=== PATIENT | female | born 1955 | race Caucasian/White ===

== ENCOUNTER 2018-08-22 13:54 | Outpatient (REF) | payer BC, SELFPAY | END 2018-08-22 14:14 | LOC: NCHCN 13:54 | PROVIDERS: PCP Nurse Practitioner Family; Visit Provider Nurse Practitioner Family | DX: R35.0 Frequency of micturition (principal) | CPT/HCPCS: 87086 ==

== ENCOUNTER 2019-10-26 11:07 | Outpatient (REF) | payer MEDICARE, BC, SELFPAY ==
[2019-10-26 19:24] LABS: Absolute Basophil Count 0.05 k/cumm (0.0-0.2); Absolute Eosinophil Count 0.04 k/cumm (0.0-0.7); Absolute Lymphocyte Count 1.31 k/cumm (1.2-3.4); Absolute Monocyte Count 0.22 k/cumm (0.11-0.7); Absolute Neutrophil Count 1.64 k/cumm (1.2-6.7); Basophils % 1.5; Eosinophils % 1.2; HCT 36.4 % (36.0-46.0); HGB 12.2 g/dL (12.0-15.5); Lymphocytes % 40.2; Mean Corp. HGB Concentration 33.5 g/dL (32.0-36.0); Mean Corpuscular Hemoglobin 32.2 pg (27.0-33.0); Mean Platelet Volume 10.9 fL (8.0-11.0); Monocytes % 6.7; Neutrophils % 50.4; Platelet Count 192 x1000/uL (130-400); RBC 3.79 m/cumm (4.00-5.20); White Blood Cell Count 3.26 k/cumm (4.4-10.8)
[2019-10-26 19:46] LABS: ALT 29 U/L (14-59); AST 19 U/L (15-37); Albumin 4.2 g/dL (3.4-5.0); Alkaline Phosphatase 54 U/L (46-116); Anion Gap 3.3 mmol/L (3-11); BUN 11 mg/dL (7-18); Bilirubin, Total 0.4 mg/dL (0.2-1.0); CO2 35.7 mmol/L (21.0-32.0); CREATININE 0.66 mg/dL (0.55-1.02); Calcium 9.1 mg/dL (8.5-10.1); Calculated LDL 172 mg/dL; Chloride 103 mmol/L (98-107); Cholesterol 253 mg/dL (<200); Glucose 92 mg/dL (74-106); HDL Cholesterol 73 mg/dL (40-60); Potassium 3.8 mmol/L (3.5-5.1); Sodium 142 mmol/L (136-145); TSH (W/Ref FT4) 1.07 uIU/mL (0.36-3.74); Total Protein 6.9 g/dL (6.4-8.2); Triglyceride 43 mg/dL (<150)
[2019-10-29 05:15] LABS: Vitamin D 25 Total 40.2 ng/ml (30-100)
== END 2019-10-26 11:27 ==
LOC: NCHCN 11:07
PROVIDERS: PCP Nurse Practitioner Family; Visit Provider Nurse Practitioner Family
DX: D72.819 Decreased white blood cell count, unspecified (principal); R53.83 Other fatigue; D64.9 Anemia, unspecified; D61.818 Other pancytopenia
CPT/HCPCS: 80053; 80061; 82306; 84443; 85025

== ENCOUNTER 2019-12-11 01:26 | Outpatient (CLI) | payer MEDICARE, BC, SELFPAY ==
--- NOTE | 2019-12-11 10:29 | DI.MAMMO_ITS ---
EXAM: MG MAMMO SCREENING CLINICAL HISTORY: [facility] Z00.00, SCREENING. TECHNIQUE: Bilateral full field digital CC and MLO mammographic images were obtained with 3D tomosyn thesis and utilizing computer aided detection (CAD). COMPARISON: Available for comparison. FINDINGS: Masses/Architectural Distortion: None seen. Microcalcifications: No suspicious pleomorphic-type are seen. Skin Thickening/Nipple Retraction: None. IMPRESSION: 1. No significant interval change with no specific features of malignancy noted. 2. Unless there is more urgent need, screening mammography is recommended, as per [employer] guidelines. ACR BI-RAD Category- 1 Negative Breast Density - Category C - Heterogeneously dense The mammogram demonstrates the patient's breast tissue is dense. Dense breast tissue is very common a nd is not abnormal but dense breast tissue can make it harder to find cancer on a mammogram. Also, de nse breast tissue may increase their breast cancer risk. This information about the result of the [facility] mogram report was provided to the patient to raise their awareness. Use this report when you speak wi th the patient about their risks for breast cancer, which includes their family history. At that time , you may recommend for more screening tests (Ultrasound or MRI) as they might be useful based on the ir risk. A negative radiographic report should not delay biopsy if a dominant or clinically suspicious mass is present. Up to ten percent of cancers are not identified on mammography. A negative report may reinforce clinical impression. Adenosis and dense breasts may obscure an underlying neoplasm. False positive reports average 6 to 10%. Patient will receive a letter notifying them of these results.
== END 2019-12-11 01:46 ==
PROVIDERS: PCP Nurse Practitioner Family; Visit Provider Nurse Practitioner Family
DX: Z12.31 Encounter for screening mammogram for malignant neoplasm of breast (principal)
CPT/HCPCS: 77063; 77067

== ENCOUNTER 2021-01-09 18:56 | Outpatient (REF) | payer MEDICARE, BC, SELFPAY ==
[2021-01-09 16:39] LABS: Iron 82 ug/dL (50-170)
[2021-01-09 16:56] LABS: ALT 28 U/L (14-59); AST 22 U/L (15-37); Albumin 4.2 g/dL (3.4-5.0); Alkaline Phosphatase 62 U/L (46-116); Anion Gap 7.2 mmol/L (3-11); BUN 14 mg/dL (7-18); Bilirubin, Total 0.4 mg/dL (0.2-1.0); CO2 29.8 mmol/L (21.0-32.0); CREATININE 0.7 mg/dL (0.55-1.02); Calcium 9.2 mg/dL (8.5-10.1); Chloride 103 mmol/L (98-107); Glucose 110 mg/dL (74-106); Potassium 4.4 mmol/L (3.5-5.1); Sodium 140 mmol/L (136-145); TSH (W/Ref FT4) 1.12 uIU/mL (0.36-3.74); Total Protein 7.1 g/dL (6.4-8.2)
[2021-01-09 18:38] LABS: Abs Immature Grans 0.01 10^3/uL (0.0-0.06); Absolute Basophil Count 0.04 10^3/uL (0.0-0.2); Absolute Eosinophil Count 0.03 10^3/uL (0.0-0.7); Absolute Lymphocyte Count 1.45 10^3/uL (1.2-3.4); Absolute Monocyte Count 0.26 10^3/uL (0.1-0.8); Absolute Neutrophil Count 2.39 10^3/uL (1.2-6.7); Eosinophils % 0.7; HCT 36.2 % (36.0-46.0); HGB 11.9 g/dL (11.2-15.7); Immature Grans % 0.2; Lymphocytes % 34.7; MCH 32.2 pg (27.0-33.0); MCHC 32.9 % (32.0-36.0); MCV 97.8 fL (80-95); MPV 10.7 fL (8.0-11.0); Monocytes % 6.2; Neutrophils % 57.2; Nucleated RBC 0 %; Platelet Count 184 10^3/uL (130-400); RDW 12.9 % (11.7-14.6); RDW-SD 46.3 fL; WBC 4.18 10^3/uL (4.4-10.8)
== END 2021-01-09 18:57 | disposition home or self-care (01) ==
LOC: NCHCN 18:56
PROVIDERS: PCP Nurse Practitioner Family; Visit Provider Nurse Practitioner Family
DX: D72.819 Decreased white blood cell count, unspecified (principal); R53.83 Other fatigue; D64.9 Anemia, unspecified
CPT/HCPCS: 80053; 83540; 84443; 85025

== ENCOUNTER 2021-03-30 01:11 | Outpatient (CLI) | payer MEDICARE, BC, SELFPAY ==
--- NOTE | 2021-03-30 | DI.MRI_ITS ---
Exam(s) MR CERVICAL SPINE WO EXAM: MR CERVICAL SPINE WO CLINICAL HISTORY: SWELLING IN NECK, R22.1 TECHNIQUE: Multiplanar multisequence MRI of the cervical spine was performed without intravenous con trast. COMPARISON: CR CERVICAL SP. LIMITED (TRAUMA) from 09/15/2011 CR CERVICAL SP. LIMITED (TRAUMA) from 09/15/2011 NM WHOLE BODY BONE SCAN from 03/17/2017 FINDINGS: CERVICOMEDULLARY JUNCTION: Intact with no evidence of cerebellar tonsillar ectopia. No obvious abnor mality of the odontoid process. No evidence of Chiari 1 malformation. CERVICAL SPINAL CORD: There is no abnormal signal in the cervical spinal cord and no evidence of foca l cord atrophy nor focal cord swelling. OSSEOUS:There are no cervical fractures evident. No significant osseous lesions in the cervical vert ebrae. There is slight reversal of the normal curvature of the cervical spine, similar to 2011. INDIVIDUAL LEVELS: C2-3: No disc herniation nor central canal stenosis. No foraminal stenosis. Mild right-sided facet a rthropathy. C3-4: Moderate disc space narrowing.There is right-sided prominent Luschka joint-disc complex with th e posterolateral disc protrusion extending beyond the level of the osteophyte. Some mass effect upon the lateral right thecal sac. No prominent central canal stenosis but there is right-sided foramina l stenosis at this level. Mild facet degenerative changes. C4-5: Preserved disc height and signal. No significant disc herniation. No central canal stenosismo derate bilateral facet arthropathy. Mild foraminal stenosis bilaterally. C5-6: Advanced disc space narrowing, as was also evident on 2011 x-rays mild annular bulging bilatera lly. Right-sided Luschka joint osteophyte complex. This results in some foraminal stenosis. Mild e ffacement of the anterior thecal sac but no tight central canal stenosis. Some facet arthropathy on the left. Right facet appears unremarkable. Mild central canal stenosis. C6-7: Advanced chronic disc space narrowing. Bilateral Luschka joint osteophytes. Slightly larger o n the right side. Also small disc-osteophyte complex. There is slight effacement of the anterior th ecal sac but no tight spinal central canal stenosis. C7-T1: No disc herniation nor central canal stenosis. No facet arthropathy.No foraminal stenosis. IMPRESSION: 1. Multilevel chronic disc changes with the reversal of normal cervical spine curvature, similar to t he x-ray of 2011. 2. There are multilevel Luschka joint-osteophyte complexes which result in multilevel foraminal steno sis as described above. 3. Only mild central canal narrowing. There is no abnormal signal in the cervical spinal cord. No e vidence of Chiari 1 malformation/cerebellar ectopia DATA REPOSITORY:
== END 2021-03-30 01:31 ==
PROVIDERS: PCP Nurse Practitioner Family; Visit Provider Nurse Practitioner Family
DX: R22.1 Localized swelling, mass and lump, neck (principal); M50.822 Other cervical disc disorders at C5-C6 level; M50.823 Other cervical disc disorders at C6-C7 level
CPT/HCPCS: 72141

== ENCOUNTER 2021-09-16 18:31 | Outpatient (REF) | payer MEDICARE, BC, SELFPAY ==
[2021-09-16 19:00] LABS: Abs Immature Grans 0.01 10^3/uL (0.0-0.06); Absolute Basophil Count 0.04 10^3/uL (0.0-0.2); Absolute Eosinophil Count 0.02 10^3/uL (0.0-0.7); Absolute Lymphocyte Count 1.13 10^3/uL (1.2-3.4); Absolute Monocyte Count 0.21 10^3/uL (0.1-0.8); Absolute Neutrophil Count 3.25 10^3/uL (1.2-6.7); Basophils % 0.9; Eosinophils % 0.4; HCT 35.2 % (36.0-46.0); HGB 11.9 g/dL (11.2-15.7); Immature Grans % 0.2; Lymphocytes % 24.2; MCH 31.6 pg (27.0-33.0); MCHC 33.8 % (32.0-36.0); MCV 93.4 fL (80-95); MPV 10.7 fL (8.0-11.0); Monocytes % 4.5; Neutrophils % 69.8; Nucleated RBC 0 %; Platelet Count 190 10^3/uL (130-400); RBC 3.77 10^6/uL (3.93-5.22); RDW 12.5 % (11.7-14.6); RDW-SD 43.5 fL; WBC 4.66 10^3/uL (4.4-10.8)
[2021-09-16 19:03] LABS: ESR 5 mm/hr (0-30)
[2021-09-16 20:54] LABS: TSH (W/Ref FT4) 1.21 uIU/mL (0.36-3.74)
== END 2021-09-16 18:32 | disposition home or self-care (01) ==
LOC: NCHCN 18:31
PROVIDERS: PCP Nurse Practitioner Family; Visit Provider Family Medicine
DX: R53.83 Other fatigue (principal); D61.818 Other pancytopenia
CPT/HCPCS: 85652; 84443; 85025

== ENCOUNTER 2022-03-18 16:19 | Outpatient (REF) | payer MEDICARE, BC, SELFPAY ==
[2022-03-18 14:55] LABS: Bilirubin Negative (Negative); Blood Negative (Negative); Clarity Clear (Clear); Glucose Negative (Negative); Ketones Negative (Negative); Leukocyte Esterase Trace (Negative); Nitrite Negative (Negative); Urobilinogen 0.2 EU/dL (Up TO 0.2)
[2022-03-18 15:05] LABS: Bacteria Negative HPF (Negative); C & S Indicated? No; Casts Negative LPF (Negative); Crystals Negative HPF (Negative); Epithelial Cells Rare HPF (Negative); Mucus Negative (Negative); RBC 0-2 HPF (0-2); WBC 0-2 HPF (0-5)
[2022-03-18 21:06] LABS: Absolute Basophil Count 0.05 10^3/uL (0.0-0.2); Absolute Eosinophil Count 0.05 10^3/uL (0.0-0.7); Absolute Lymphocyte Count 1.14 10^3/uL (1.2-3.4); Absolute Neutrophil Count 1.77 10^3/uL (1.2-6.7); Basophils % 1.6; Eosinophils % 1.6; HCT 36.2 % (36.0-46.0); HGB 12.1 g/dL (11.2-15.7); Lymphocytes % 35.5; MCH 32.4 pg (27.0-33.0); MCHC 33.4 % (32.0-36.0); MCV 97 fL (80-95); MPV 10.4 fL (8.0-11.0); Monocytes % 6.2; Neutrophils % 55.1; Platelet Count 193 10^3/uL (130-400); RBC 3.74 10^6/uL (3.93-5.22); RDW 12.7 % (11.7-14.6); RDW-SD 45.1 fL; WBC 3.21 10^3/uL (4.4-10.8)
[2022-03-18 21:11] LABS: ESR 7 mm/hr (0-30)
[2022-03-18 21:12] LABS: C-Reactive Protein 0.07 mg/dL (0.0-0.3)
[2022-03-19 17:56] LABS: Rheumatoid Factor 151.6 IU/mL (<12.0)
[2022-03-22 10:32] LABS: Lyme Ab w Rflx to Lyme Confirm Negative (Negative)
[2022-03-22 16:08] LABS: ANA Interpretation Positive (Negative); ANA Titer Pattern 1:160 Homogeneous
[2022-03-22 23:36] LABS: Anaplasma phagocytophilum Negative (Negative); B. miyamotoi PCR Negative (Negative); Babesia divergens/MO-1 Negative (Negative); Babesia duncani Negative (Negative); Babesia microti Negative (Negative); Ehrlichia chaffeensis Negative (Negative); Ehrlichia ewingii/canis Negative (Negative); Ehrlichia muris eauclairensis Negative (Negative)
== END 2022-03-18 16:20 | disposition home or self-care (01) ==
LOC: LBN 16:19
PROVIDERS: PCP Nurse Practitioner Family; Visit Provider Nurse Practitioner Family
DX: R53.83 Other fatigue (principal); G89.29 Other chronic pain; R82.998 Other abnormal findings in urine; M25.50 Pain in unspecified joint
CPT/HCPCS: 85652; 87798; 81003; 81015; 85025; 86038; 86140; 86431; 86618

== ENCOUNTER → 2022-04-06 01:54 | Outpatient (CLI) | payer MEDICARE, BC, SELFPAY ==
--- NOTE | 2022-04-06 12:00 | DI.MAMMO_ITS ---
Exam(s) MAMMO SCREENING EXAM: MAMMO SCREENING CLINICAL HISTORY: SCREENING, Z12.39. TECHNIQUE: Bilateral full field digital CC and MLO mammographic images were obtained with 3D tomosyn thesis and utilizing computer aided detection (CAD). COMPARISON: Prior mammograms were reviewed, the most recent being December 2019. FINDINGS: Fibroglandular tissue pattern is again noted be moderately dense, this somewhat decreasing the sensit ivity of the mammogram for finding hidden underlying lesions There are no new significant radiograph findings in the right breast. In the left breast there are multiple adjacent nodular densities seen on the CC view, starting at lester roximately 1.5 cm from the nipple and extending to 5 cm from the nipple. Spot compression view recom mended. No malignant-appearing microcalcification groups at this level nor elsewhere in either breas t. There is also small asymmetric density measuring 3 millimeters in the medial aspect of the breast , approximately 6 cm in from the nipple, somewhat more evident than on the prior studies. There is no significant architectural distortion nor skin thickening-retraction. IMPRESSION: Dense bilateral fibroglandular tissue. Nodular densities in the left breast, both lateral and masseur/masseuse omedial. Spot compression views and complete breast ultrasound are recommended. BI-RADS Category 0 - Assessment Incomplete: Need additional imaging evaluation Breast Density - Category C - Heterogeneously dense Breast density Category C or D implies that the patient has dense breast tissue. Dense breast tissue can make it harder to find cancer on a mammogram. Dense breast tissue is also associated with an incr eased risk of breast cancer. This information about the result of the mammogram report was provided to the patient to raise their awareness. Use this report when you speak with the patient about their risks for breast cancer, which includes their family history. At that time, you may recommend additional screening tests (Ultrasoun d or MRI) as these tests may add significant information. A negative radiographic report should not delay biopsy if a dominant or clinically suspicious mass is present. Up to ten percent of cancers are not identified on mammography. A negative report may reinforce clinical impression. Adenosis and dense breasts may obscure an underlying neoplasm. False positive reports average 6 to 10%. Patient will receive a letter notifying them of these results.
== END ==
PROVIDERS: PCP Nurse Practitioner Family; Visit Provider Nurse Practitioner Family
DX: Z12.31 Encounter for screening mammogram for malignant neoplasm of breast (principal); R92.8 Other abnormal and inconclusive findings on diagnostic imaging of breast
CPT/HCPCS: 77063; 77067

== ENCOUNTER → 2022-04-13 00:57 | Outpatient (CLI) | payer MEDICARE, BC, SELFPAY ==
--- NOTE | 2022-04-13 10:45 | DI.US_ITS ---
Exam(s) MG MAMMO SCREEN CALL BACK UNI US BREAST LT COMPLETE EXAM: MG MAMMO SCREEN CALL BACK UNI CLINICAL HISTORY: F/U ABNL MAMMO, MULTIPLE NODULAR DENSITIES LT BREAST 1.5-5 CM FROM NIPPLE. TECHNIQUE: Craniocaudal compression digital Mammography views of the left breast with [employer] d Diagnosis followed by Tomosynthesis and left breast ultrasound. COMPARISON: MG Diagnostic Right Mammo from 06/04/2014 MG Screening Bilat Mammo from 08/18/2015 MG MG MAMMO SCREENING from 12/11/2019 MG MG MAMMO SCREENING from 04/06/2022 US US BREAST LT COMPLETE from 04/13/2022 FINDINGS: Mammography/Tomosynthesis: Masses/Architectural Distortion: None seen. A small nodular asymmetry seen in the posteromedial chani st does not persist as a masslike density on spot compression imaging. Dense fibroglandular tissue i s noted in the central and lateral portions of the breast.. Microcalcifictions: No suspicious pleomorphic-type are seen. Skin Thickening/Nipple Retraction: None. Left breast US: Echotexture: Normal appearance of the glandular tissue. Shadowing: No suspicious foci. Cyst: None. Solid lesions: None seen. Ductal dilation: Minimally dilated ducts in the retroareolar region.. IMPRESSION: 1. No evidence of malignancy is noted. 2. Unless there is more urgent need, follow-up screening mammography is recommended, as per [employer] guidelines. BI-RADS Category 1 - Negative Breast Density - Category C - Heterogeneously dense A mammogram that demonstrates density of C or D indicates the patient's breast tissue is dense. Dense breast tissue is very common and is not abnormal, but dense breast tissue can make it harder to find cancer on a mammogram. Also, dense breast tissue may increase their breast cancer risk. This informa tion about the result of the mammogram report was provided to the patient to raise their awareness. U se this report when you speak with the patient about their risks for breast cancer, which includes th eir family history. At that time, you may recommend for more screening tests (Ultrasound or MRI) as t hey might be useful based on their risk. A negative radiographic report should not delay biopsy if a dominant or clinically suspicious mass is present. Up to ten percent of cancers are not identified on mammography. A negative report may reinforce clinical impression. Adenosis and dense breasts may obscure an underlying neoplasm. False positive reports average 6 to 10%. Patient will receive a letter notifying them of these results.
== END ==
PROVIDERS: PCP Nurse Practitioner Family; Visit Provider Nurse Practitioner Family
DX: Z12.31 Encounter for screening mammogram for malignant neoplasm of breast (principal); R92.8 Other abnormal and inconclusive findings on diagnostic imaging of breast; N60.42 Mammary duct ectasia of left breast; N64.59 Other signs and symptoms in breast
CPT/HCPCS: 76642; 77063; 77067

== ENCOUNTER 2022-05-26 17:34 | Outpatient (REF) | payer MEDICARE, BC, SELFPAY | END 2022-05-26 17:35 | disposition home or self-care (01) | LOC: LBN 17:34 | PROVIDERS: PCP Nurse Practitioner Family; Visit Provider Physician Assistant | DX: R31.9 Hematuria, unspecified (principal) | CPT/HCPCS: 87086 ==

== ENCOUNTER → 2022-07-08 04:14 | Outpatient (CLI) | payer MEDICARE, BC, SELFPAY ==
--- NOTE | 2022-07-08 17:33 | DI.RAD_ITS ---
Exam(s) XR ARTHRITIS SERIES EXAM: XR ARTHRITIS SERIES CLINICAL HISTORY: FIBRO M79.7 RF+ R76.8 POLYARTHRALGIA M25.50 +BERNADETTE R76.8 DDD M50.30 TECHNIQUE: COMPARISON: No exams were available for comparison FINDINGS: Two views of the right and left hand were obtained. There are slight degenerative changes of the IP joints. Bones are normally mineralized. No erosive or destructive changes. IMPRESSION: Examination of the hands is unremarkable for age. RADIATION DOSE DELIVERED: Total DLP
--- NOTE | 2022-07-08 17:33 | DI.RAD_ITS ---
Exam(s) XR SACROILIAC JOINTS EXAM: XR SACROILIAC JOINTS CLINICAL HISTORY: FIBRO M79.7 RF+ R76.8 POLYARTHRALGIA M25.50 +BERNADETTE R76.8 DDD M50.30 M47.812 TECHNIQUE: COMPARISON: No exams were available for comparison FINDINGS: Three views were obtained. Slight degenerative changes of the SI joints noted. Joint spaces are wel l maintained. No evidence of sacroiliitis. IMPRESSION: RADIATION DOSE DELIVERED: Total DLP
--- NOTE | 2022-07-08 17:33 | DI.RAD_ITS ---
Exam(s) XR LUMBAR SPINE COMPLETE EXAM: XR LUMBAR SPINE COMPLETE CLINICAL HISTORY: FIBRO M79.7 RF+ R76.8 POLYARTHRALGIA M25.50 +BERNADETTE R76.8 DDD M50.30 M47.812 TECHNIQUE: COMPARISON: No exams were available for comparison FINDINGS: Five views were obtained. There is a large quantity of fecal material throughout the colon. There i s a slight biconvex thoracolumbar scoliosis. There is loss of disc height of the intervertebral disc s throughout the lumbar region with vacuum disc phenomenon at multiple levels. There are moderate hy pertrophic endplate and facet changes. There is no fracture or dislocation. There is no spondylolys is or spondylolisthesis. The SI joints are well maintained with minimal degenerative changes. no ezio dence of sacroiliitis. IMPRESSION: Degenerative changes as described above . RADIATION DOSE DELIVERED: Total DLP
--- NOTE | 2022-07-08 17:33 | DI.RAD_ITS ---
Exam(s) XR FOOT RT LIMITED EXAM: XR FOOT RT LIMITED CLINICAL HISTORY: FIBRO M79.7 RF+ R76.8 POLYARTHRALGIA M25.50 +BERNADETTE R76.8 DDD M50.30 TECHNIQUE: COMPARISON: CR XR FOOT LT LIMITED from 07/08/2022 FINDINGS: Two views were obtained. There is a slight hallux valgus deformity. There mild black articular degene rative changes of foot. On the lateral view there appears to be an accessory ossicle of the navicula r, I do not appreciate this on the AP view. Additional oblique views may be obtained if the patient has symptoms referable to the midfoot. IMPRESSION: RADIATION DOSE DELIVERED: Total DLP
--- NOTE | 2022-07-08 17:33 | DI.RAD_ITS ---
Exam(s) XR FOOT LT LIMITED EXAM: XR FOOT LT LIMITED CLINICAL HISTORY: FIBRO M79.7 RF+ R76.8 POLYARTHRALGIA M25.50 +BERNADETTE R76.8 DDD M50.30 TECHNIQUE: COMPARISON: No exams were available for comparison FINDINGS: Two views were obtained. There is a mild hallux valgus deformity. There are slight black articular de generative changes of the joints of the foot. No other bony abnormality seen. IMPRESSION: RADIATION DOSE DELIVERED: Total DLP
== END ==
PROVIDERS: PCP Nurse Practitioner Family; Visit Provider Student in an Organized Health Care Education/Training Program
DX: M79.7 Fibromyalgia (principal); R76.8 Other specified abnormal immunological findings in serum; M25.59 Pain in other specified joint; M50.30 Other cervical disc degeneration, unspecified cervical region; M53.3 Sacrococcygeal disorders, not elsewhere classified; M47.812 Spondylosis without myelopathy or radiculopathy, cervical region; M47.816 Spondylosis without myelopathy or radiculopathy, lumbar region; M41.35 Thoracogenic scoliosis, thoracolumbar region; M20.11 Hallux valgus (acquired), right foot; M20.12 Hallux valgus (acquired), left foot; M54.41 Lumbago with sciatica, right side; G89.29 Other chronic pain
CPT/HCPCS: 72110; 72202; 73120; 73620

== ENCOUNTER 2023-02-17 01:06 | Outpatient (CLI) | payer MEDICARE, BC, SELFPAY ==
--- NOTE | 2023-02-17 | DI.RAD_ITS ---
Exam(s) XR HIP PELVIS ADULT BL EXAM: XR HIP PELVIS ADULT BL CLINICAL HISTORY: NEUROPATHY, G62.9, HIP PAIN, M25.559. TECHNIQUE: 2D digital imaging was performed. Three views. COMPARISON: No exams were available for comparison FINDINGS: BONES: No acute fracture is present. No bony destructive lesion is seen. JOINTS: No dislocation present. There is severe narrowing of the superior right hip joint space. The re is prominent periarticular spurring as well as sclerosis. There is slight flattening of the femor al head. The left hip shows moderate joint space narrowing and prominent periarticular spurring. No femoral head flattening. Mild degenerative changes of the SI joints. Severe narrowing L5-S1 disc s pace. SOFT TISSUE: Normal. Stool overlies the sacrum. IMPRESSION: Severe degenerative changes of the right hip. Moderate degenerative changes of the left hip. DATA REPOSITORY: RADIATION DOSE DELIVERED:
== END 2023-02-17 01:26 ==
LOC: DI 01:07
PROVIDERS: Visit Provider Physician Assistant
DX: G62.9 Polyneuropathy, unspecified (principal); M25.559 Pain in unspecified hip
CPT/HCPCS: 73521

== ENCOUNTER 2023-03-03 02:00 | Outpatient (CLI) | payer MEDICARE, BC, SELFPAY ==
[2023-03-03 07:52] LABS: HCT 34.6 % (36.0-46.0); HGB 11.6 g/dL (11.2-15.7); MCH 31.1 pg (27.0-33.0); MCHC 33.5 % (32.0-36.0); MCV 93 fL (80-95); MPV 9.5 fL (8.0-11.0); Platelet Count 218 10^3/uL (130-400); RBC 3.73 10^6/uL (3.93-5.22); RDW 13.2 % (11.7-14.6); RDW-SD 45.4 fL; WBC 3.51 10^3/uL (4.4-10.8)
[2023-03-03 08:12] LABS: Anion Gap 6.5 mmol/L (3-11); BUN 20 mg/dL (7-18); CO2 31.5 mmol/L (21.0-32.0); CREATININE 0.7 mg/dL (0.55-1.02); Calcium 9.3 mg/dL (8.5-10.1); Chloride 103 mmol/L (98-107); Cholesterol 224 mg/dL (<200); Estimated GFR 94.15 (mL/min/1.73m2); Glucose 97 mg/dL (74-106); HDL Cholesterol 73 mg/dL (40-60); Potassium 4.4 mmol/L (3.5-5.1); Sodium 141 mmol/L (136-145)
[2023-03-03 08:23] LABS: Triglyceride < 25 mg/dL (<150)
== END 2023-03-03 02:01 | disposition home or self-care (01) ==
LOC: LBO 02:00
PROVIDERS: Visit Provider Physician Assistant
DX: E78.5 Hyperlipidemia, unspecified (principal)
CPT/HCPCS: 36415; 80048; 80061; 85027

== ENCOUNTER 2023-03-11 00:12 | Outpatient (CLI) | payer MEDICARE, BC, SELFPAY ==
--- NOTE | 2023-03-11 | DI.MRI_ITS ---
Exam(s) MR BRAIN WO EXAM: MR BRAIN WO CLINICAL HISTORY: NEUROPATHY,G62.9 TECHNIQUE: Multiplanar multisequence MRI of the brain was performed. COMPARISON: No exams were available for comparison FINDINGS: CEREBRAL PARENCHYMA: There is no evidence of intracranial hemorrhage, mass effect, or shift of midline structures. There are no extra-axial fluid collections. Ventricles are not enlarged or shifted. There is no significant focal signal abnormality in the cerebellar hemispheres nor within the matias, m idbrain, and thalami. There is no abnormal signal abnormality in the periventricular white matter. There is no significant focal signal abnormality evident on diffusion imaging to suggest acute ischem ic event. PITUITARY GLAND: No mass nor parasellar abnormality. No obvious abnormality in the cavernous sinuses. FLOW VOIDS: The expected flow void are noted. No evidence of obvious aneurysm nor obvious vascular ma lformation. PARANASAL SINUSES: The visualized paranasal sinuses appear unremarkable. No obvious finding ORBITS: No obvious findings. IMPRESSION: No significant intracranial findings on this noninfused MRI scan of the brain. DATA REPOSITORY:
== END 2023-03-11 00:32 ==
LOC: DI 00:12
PROVIDERS: Visit Provider Physician Assistant
DX: G62.9 Polyneuropathy, unspecified (principal)
CPT/HCPCS: 70551

== ENCOUNTER → 2023-04-18 13:39 | Outpatient (BNVA) | payer MEDICARE, BC, SELFPAY | PROVIDERS: PCP Physician Assistant; Referring Provider Physician Assistant | DX: M16.11 Unilateral primary osteoarthritis, right hip (principal); M16.12 Unilateral primary osteoarthritis, left hip | CPT/HCPCS: 99204 ==

== ENCOUNTER 2023-04-22 00:14 | Outpatient (CLI) | payer MEDICARE, BC, SELFPAY ==
--- NOTE | 2023-04-22 | DI.MAMMO_ITS ---
Exam(s) MG MAMMO SCREENING 60 MIN DUR EXAM: MG MAMMO SCREENING 60 MIN DUR CLINICAL HISTORY: SCREENING MAMMO FOR BREAST CANCER Z12.39. TECHNIQUE: Bilateral full field digital CC and MLO mammographic images were obtained with 3D tomosyn thesis and utilizing computer aided detection (CAD). COMPARISON: Prior mammograms and ultrasound were reviewed. FINDINGS: Fibroglandular tissue pattern is again noted be moderately dense. There are no obvious new spiculated masses nor malignant appearing microcalcification groups. There is no significant architectural distortion nor skin thickening-retraction. IMPRESSION: Moderately dense fibroglandular tissue. No obvious radiographic evidence malignancy. BI-RADS Category 2 - Benign Findings Breast Density - Category C - Heterogeneously dense Breast density Category C or D implies that the patient has dense breast tissue. Dense breast tissue can make it harder to find cancer on a mammogram. Dense breast tissue is also associated with an incr eased risk of breast cancer. This information about the result of the mammogram report was provided to the patient to raise their awareness. Use this report when you speak with the patient about their risks for breast cancer, which includes their family history. At that time, you may recommend additional screening tests (Ultrasoun d or MRI) as these tests may add significant information. A negative radiographic report should not delay biopsy if a dominant or clinically suspicious mass is present. Up to ten percent of cancers are not identified on mammography. A negative report may reinforce clinical impression. Adenosis and dense breasts may obscure an underlying neoplasm. False positive reports average 6 to 10%. Patient will receive a letter notifying them of these results.
== END 2023-04-22 00:34 ==
LOC: DI 00:15
PROVIDERS: PCP Physician Assistant; Visit Provider Physician Assistant
DX: Z12.31 Encounter for screening mammogram for malignant neoplasm of breast (principal)
CPT/HCPCS: 77063; 77067

== ENCOUNTER 2023-06-02 03:51 | Outpatient (CLI) | payer MEDICARE, BC, SELFPAY ==
[2023-06-02 16:10] LABS: HCT 34.3 % (36.0-46.0); HGB 11.3 g/dL (11.2-15.7); MCH 31.2 pg (27.0-33.0); MCHC 32.9 % (32.0-36.0); MCV 95 fL (80-95); Platelet Count 241 10^3/uL (130-400); RBC 3.62 10^6/uL (3.93-5.22); RDW 13.7 % (11.7-14.6); RDW-SD 47.6 fL; WBC 5.47 10^3/uL (4.4-10.8)
[2023-06-02 16:44] LABS: Anion Gap 5.3 mmol/L (3-11); BUN 17 mg/dL (7-18); CO2 32.7 mmol/L (21.0-32.0); CREATININE 0.6 mg/dL (0.55-1.02); Calcium 8.9 mg/dL (8.5-10.1); Chloride 102 mmol/L (98-107); Estimated GFR 97.71 (mL/min/1.73m2); Glucose 115 mg/dL (74-106); Potassium 4.3 mmol/L (3.5-5.1); Sodium 140 mmol/L (136-145)
== END 2023-06-02 03:52 | disposition home or self-care (01) ==
LOC: LBO 03:51
PROVIDERS: PCP Physician Assistant; Visit Provider Student in an Organized Health Care Education/Training Program
DX: M16.0 Bilateral primary osteoarthritis of hip (principal); Z01.818 Encounter for other preprocedural examination
CPT/HCPCS: 80048; 85027; 86850; 86900; 86901

== ENCOUNTER 2023-06-08 15:40 | Observation (INO) | payer MEDICARE, BC, SELFPAY ==
[2023-06-08] VITALS (18 sets, daily range): BP systolic 78–116; BP diastolic 60–89; PULSE 63–88; RESP 14–18; TEMP 35.9–36.6; O2SAT 97–100; BMI 20.4
[2023-06-08] MEDS: Lactated Ringers 1,000 ML 80 ML IV ×3 (06:41→18:14)
[2023-06-08] MEDS: Acetaminophen 500 MG TAB 1000 MG PO ×2 (06:41→19:28)
[2023-06-08] MEDS: Celecoxib 200 MG CAP 400 MG PO (06:41)
--- NOTE | 2023-06-08 06:45 | DI.RAD_ITS ---
Exam(s) XR HIP RT IN OR EXAM: XR HIP RT IN OR CLINICAL HISTORY: RIGHT HIP OA. TECHNIQUE: 2D digital imaging was performed. COMPARISON: No exams were available for comparison FINDINGS: Fluoroscopy was provided during right hip arthroplasty. See procedure report for details. Total fluoroscopy time 23.6 seconds Radiation exposure index/cumulative dose: Afiar= 2.0813mGy IMPRESSION: As above. DATA REPOSITORY: RADIATION DOSE DELIVERED:
--- NOTE | 2023-06-08 06:45 | DI.RAD_ITS ---
Exam(s) XR HIP LT IN OR EXAM: XR HIP LT IN OR CLINICAL HISTORY: RIGHT HIP DJD. TECHNIQUE: 2D digital imaging was performed. COMPARISON: No exams were available for comparison FINDINGS: Fluoroscopy was provided during left hip arthroplasty. See procedure report for details. Total fluoroscopy time 25 seconds IMPRESSION: Radiation exposure index/cumulative dose:shantel Oreilly= 2.3757 mGy DATA REPOSITORY: RADIATION DOSE DELIVERED:
--- NOTE | 2023-06-08 06:59 | W.ANESPRE ---
General Info Date of Service Date Performed: 06/08/23 Height: 5 ft 9.5 in Weight: 63.7 kg Body Mass Index (BMI): 20.4 Surgical Procedure: Operation Date: 06/08/23 08:00 Proposed Procedure Side Surgeon p Hip Total Hip Anterior Bilateral, Corail Bilateral Nolan Rosado MD Meds Allergies and Home Medications Allergies Allergy/AdvReac Type Severity Reaction Status Date / Time Iodinated Contrast Media Allergy Intermediate Swelling/Ed Verified 06/08/23 06:05 jesus acetaminophen [From Vicodin] AdvReac Intermediate Verified 06/08/23 06:05 hydrocodone bitartrate AdvReac Intermediate Verified 06/08/23 06:05 [From Vicodin] prochlorperazine maleate AdvReac Intermediate Psychosis Verified 06/08/23 06:05 [From Compazine] enviornmental AdvReac Mild head Uncoded 06/07/23 11:57 congestion Home Medication Medication Instructions Recorded cholecalciferol (vitamin D3) 25 1 tab PO DAILY 09/28/13 mcg (1,000 unit) tablet multivitamin 1 cap PO DAILY 09/28/13 omega-3 fatty acids-fish oil 300 1 cap PO DAILY 09/28/13 mg-1,000 mg capsule acetaminophen 650 mg 650 mg PO Q12H 02/22/23 tablet,extended release (Tylenol Arthritis Pain) cetirizine 10 mg tablet 10 mg PO DAILY PRN 02/22/23 cyanocobalamin (vitamin B-12) 2,500 mcg PO DAILY 02/22/23 2,500 mcg tablet fluticasone propionate 50 1 spray intranasal BID 02/22/23 mcg/actuation nasal spray,suspension (Flonase Allergy Relief) Current Visit Medications: Current Medications Generic Name Dose Route Start Last Admin Trade Name Freq PRN Reason Stop Dose Admin Acetaminophen 1,000 mg 06/08/23 06:00 06/08/23 06:41 Acetaminophen 500 Mg Tab PO 06/08/23 16:00 1,000 mg PREOP KATH Administration Celecoxib 400 mg 06/08/23 06:00 06/08/23 06:41 Celecoxib 200 Mg Cap PO 06/08/23 16:00 400 mg PREOP KATH Administration Tranexamic Acid 1,000 mg/ 60 mls @ 360 mls/hr 06/08/23 06:00 Sodium Chloride IV 06/08/23 16:00 PREOP KATH Tranexamic Acid 1,000 mg/ 60 mls @ 360 mls/hr 06/08/23 06:00 Sodium Chloride IV 06/08/23 16:00 DIRECTED KATH Ringer's Solution 1,000 mls @ 80 mls/hr 06/08/23 06:00 06/08/23 06:41 IV 07/07/23 23:59 80 mls/hr INFUSION KATH Administration Cefazolin Sodium/Dextrose 2 gm in 50 mls @ 100 mls/hr 06/08/23 06:00 Ancef Duplex IVPB 06/08/23 16:00 PREOP KATH IV Miscellaneous Supplies 1 each 06/08/23 06:00 Iv Access IV 07/07/23 23:59 DIRECTED KATH Sodium Chloride 0 ml 06/08/23 06:00 Normal Saline Flush 10 Ml Syr IV 07/07/23 23:59 PRN PRN Sodium Chloride 0 ml 06/08/23 06:00 Normal Saline 10 Ml Vial IJ 07/07/23 23:59 DIRECTED PRN Sterile Water 0 ml 06/08/23 06:00 Water,Injection,Sterile 10 Ml Vial IJ 07/07/23 23:59 DIRECTED PRN PFSH Active Problems Active Problems: Problem Status Onset Code Rheumatoid factor positive R76.8 Chronic pain G89.29 Fibromyalgia M79.7 Hyperlipidemia E78.5 Degenerative joint disease of both hips M16.0 Medical History Medical History Anemia Depression with anxiety Hematuria Low back pain Migraine headache Neuropathy Pancytopenia Spinal stenosis, cervical region Vitamin D deficiency Surgical History Surgical History (Updated 06/08/23 @ 06:05 by Ravi Portillo) Hx of section Tobacco Smoking/Tobacco Use Status: Never Alcohol Alcohol Intake: current Alcohol intake frequency: a few times a week Substance Use Substance use: Never Substance use type: does not use Vital Signs and Lab Results Vital Signs Most Recent Vital Signs in EMR: Most Recent Vital Signs Temp Pulse Resp BP Pulse Ox 36.6 C 63 16 114/89 100 06/08/23 06:07 06/08/23 06:07 06/08/23 06:07 06/08/23 06:07 06/08/23 06:07 Lab Results Blood Type / Crossmatch: Patient ABO/Rh A Negative 06/02/23 Antibody Screen NEGATIVE 06/02/23 Complete Blood Count: White Blood Count 5.47 10^3/uL (4.4-10.8) 06/02/23 15:03 Red Blood Count 3.62 10^6/uL (3.93-5.22) L 06/02/23 15:03 Hemoglobin 11.3 g/dL (11.2-15.7) 06/02/23 15:03 Hematocrit 34.3 % (36.0-46.0) L 06/02/23 15:03 Platelet Count 241 10^3/uL (130-400) 06/02/23 15:03 Complete Metabolic Panel: Sodium 140 mmol/L (136-145) 06/02/23 15:03 Potassium 4.3 mmol/L (3.5-5.1) 06/02/23 15:03 Chloride 102 mmol/L (98-107) 06/02/23 15:03 Carbon Dioxide 32.7 mmol/L (21.0-32.0) H 06/02/23 15:03 BUN 17 mg/dL (7-18) 06/02/23 15:03 Creatinine 0.6 mg/dL (0.55-1.02) 06/02/23 15:03 Est GFR (CKD-EPI 2020) 97.71 (mL/min/1.73m2) 06/02/23 15:03 Calcium 8.9 mg/dL (8.5-10.1) 06/02/23 15:03 Glucose 115 mg/dL (74-106) H 06/02/23 15:03 Liver Function Panel: No Data to Display Coagulation Panel: No Data to Display Cardiac Panel: No Data to Display Arterial Blood Gas: No Data to Display Venous Blood Gas: No Data to Display Pancreas Panel: No Data to Display Thyroid Panel: No Data to Display Infectious Disease: No Data to Display Blood Cultures: No Data to Display Toxicology Panel: No Data to Display Anesthesia Assessment and Plan Anesthesia History Personal History: No History of Anesthesia Complications Family History: No Family History of Anesthesia Complications Exercise Tolerance Exercise Tolerance: Metabolic Equivalents>4 Pertinent Negatives Pertinent Negatives: No Symptoms of GERD Cardiac & Pulmonary Exam Cardiac Exam: Normal S1/S2 Heart Sounds Pulmonary Exam: Clear Bilateral Breath Sounds Implantable Cardiac Device Does patient have a Pacemaker or an ICD?: No Airway Exam Known Difficult Airway: No Mallampati Class: 1 Mouth Opening: Normal (> 3cm) Thyromental Distance: Greater than 3 cm Neck Range of Motion: Full ROM Neck Circumference: Normal Teeth Condition: Normal Dentition ASA Classification ASA Score: ASA 2 Emergency Case?: No NPO Status NPO Status: NPO Clears >2 hours, Solids >8 hours Anesthesia Plan Resuscitation Status: Full Code Anesthesia Technique: Spinal Anesthesia Airway Planned: Natural Airway Monitors Used: Standard Monitors
--- NOTE | 2023-06-08 07:23 | PDOC.DSDIS_ITS ---
Date of service: 06/08/23 Time of Service: 07:23 Discharge Plan Disposition Patient Disposition: Home Condition: Good Discharge Details Reason For Visit: B/L THR Attending Provider: Nolan Rosado Primary Care Provider: Francisco Hunt Home Meds and New Rx's Prescriptions: New celecoxib 200 mg capsule 200 mg PO BID Qty: 60 0RF acetaminophen 500 mg tablet 1,000 mg PO TID Qty: 90 3RF dexamethasone 4 mg tablet 4 mg PO DAILY Qty: 2 0RF pantoprazole 40 mg tablet,delayed release (DR/EC) 40 mg PO DAILY Qty: 30 0RF oxycodone 5 mg tablet 5 mg PO Q4H MDD 6 tabs PRN (Reason: pain) Qty: 20 0RF aspirin 81 mg tablet,delayed release (DR/EC) 81 mg PO BID Qty: 60 0RF Continued fluticasone propionate [Flonase Allergy Relief] 50 mcg/actuation spray,suspension 1 spray intranasal BID Rx Instructions: administer into each nostril cetirizine 10 mg tablet 10 mg PO DAILY PRN cyanocobalamin (vitamin B-12) 2,500 mcg tablet 2,500 mcg PO DAILY multivitamin 1 EACH capsule 1 cap PO DAILY cholecalciferol (vitamin D3) 1,000 UNITS tablet 1 tab PO DAILY omega-3 fatty acids-fish oil 1 EACH capsule 1 cap PO DAILY Discontinued acetaminophen [Tylenol Arthritis Pain] 650 mg tablet extended release 650 mg PO Q12H Discharge Instructions Additional Instructions: Total Hip Discharge Instructions Activity: The most important activity is to walk. You should try to take short walks a few times a day. You have no restrictions on movement or positioning, but do not try to force what you do. You will find some stiffness and weakness with hip flexion (lifting your knee). Do not try to strengthen this too early, continue to practice walking and stairs and this will come. - Outpatient physical therapy can be helpful to help return you to a normal gait and improve your flexibility and strength. This can start around 2 weeks. For some patients, it?s not necessary. Usually this is determined at the time of discharge or at the first post-operative visit. - You should wear the ANNY hose on both legs for 2 weeks. Dressing: Keep the surgical dressing in place for at least one week. After the first week it may be removed and replace with light gauze and tape or nothing. It may get wet after 3 days but avoid soaking the dressing. If it gets wet, just lightly pat dry. It is important to always keep some gauze between skin folds, especially when you are sitting. Spend some time with the wound exposed when you are lying flat as the incision does wrinkle onto itself. Medications: - You should take Tylenol and an anti-inflammatory Celebrex as your primary pain control medications. If the Celebrex is too expensive or not covered, please call the office for another alternative (Advil/Ibuprofen or Naproxen/Aleve). - You have been prescribed a stronger pain medication Oxycodone for breakthrough pain, take as needed as prescribed. - You have also been prescribed a stomach acid reduction agent Pantoprozole to help reduce stomach acid and reflux. - You have also been prescribed Decadron to help with post-operative nausea and pain. You will take this for two days starting tomorrow. - You will be taking Aspirin 81mg twice a day for DVT prevention unless instructed otherwise. - If you have constipation you should take Colace or Miralax (both [id number]). It takes most people 3-4 days to have a bowel movement. Follow-up: 2 weeks If you have any acute concerns or questions, please do not hesitate to contact the office at [phone]. You may contact Dr. Rosado with any questions after hours through the hospital at [phone] or on his cell phone at [phone]. Referrals: Nolan Rosado MD [ [facility] STAFF PHYSICIAN] - Equipment/Supplies: Walker Activity:: Activity as Tolerated Shower/Bathe:: 72 hours Diet:: As Tolerated DS: Diagnosis Discharge Diagnosis (1) Degenerative joint disease of both hips: Status: Acute
[2023-06-08] MEDS: ceFAZolin 2 GM/50 ML BAG IVPB (08:15)
--- NOTE | 2023-06-08 11:22 | ROE_ITS ---
Date of service: 06/08/23 Time of Service: 11:10 Operative Note Operative Note DATE OF PROCEDURE: 06/08/23 PRE-OP DIAGNOSIS: Bilateral Hip Osteoarthritis POST-OP DIAGNOSIS: same PROCEDURE: Bilateral Anterior Total Hip Arthroplasty with Intraoperative Navigation SURGEON: Nolan Rosado FINAL TOUCH UP PAINTER: Raymond Doe ANESTHESIA TYPE: Spinal Refer to Anesthesia Record ESTIMATED BLOOD LOSS: 400 PATHOLOGY: none sent COMPLICATIONS: None Patient was transported to: PACU Patient's condition: stable Implants: RIGHT: 1. Depuy Warren Acetabular Component, 54mm 2. Depuy Acetabular Liner, [id number] 3. Depuy Corail Coxa Vara Femoral Stem, Size 11 4. Depuy Altrx Ceramic Femoral Head, Size 36+5mm LEFT: 1. Depuy Warren Acetabular Component, 54mm 2. Depuy Acetabular Liner, [id number] 3. Depuy Corail High Offset Femoral Stem, Size 12 4. Depuy Altrx Ceramic Femoral Head, Size 36+1.5mm Indications: I have seen Zach in clinic for symptoms of hip arthritis, confirmed with radiographic findings. She has exhausted nonoperative methods and was having significant limitations in daily function and desired better function and less pain. I discussed the technical details of a hip replacement. I explained the risks of the procedure to include, but not limited to, bleeding, infection, pain, stiffness, fracture, damage to nerves and vessels, damage to muscles and tendons, loosening, instability, leg length inequality, need for repeat procedure, blood clot and cardiopulmonary demise. Despite these risks, Zach elected to proceed. Findings: There was significant signs of arthritis throughout both hips. Large osteophytes are present throughout the femoral head neck as well as within the acetabulum at the floor and around the rim. There is also notable inflammatory synovitis and an effusion about the right side. Procedure Description: Zach was greeted in the preoperative holding area where the correct side was identified and marked. The consent was reviewed with the patient and signed. The history and physical was updated. All questions were answered. She was taken back to the operating room. A spinal anesthestic was then adm inistered. The patient was placed into the supine position on the HANA table. Both feet were wrapped with Webrill cotton wrap along with Coban. RIGHT Side The feet were placed in specialized boots for the HANA table, well seated within the boot and secured. SCDs were applied. The patient was then slid down onto a peroneal post. A preoperative AP hip was obtained to serve as a reference for determining leg lengths. Prophylactic antibiotics in the form of Cefazolin were administered. 1g of Tranxemic Acid was given intravenously within 30 minutes of incision. The right leg was then prepped with Chloraprep and draped in a standard fashion. A second prep with Chloraprep was performed prior to placement of a shower-curtain type drape with Iodine impregnated skin protection. A timeout to confirm correct identity, side and site, procedure, allergies, anesthesia, and medical concerns was performed. An obliquely oriented incision was made starting lateral to the ASIS and running distal over the Tensor Fascia Cris (TFL) muscle belly toward the fibular head, approximately 10cm. The skin and soft tissue was dissected sharply, through Pramod?s fascia, and to the fascia of the TFL. With the fascia and superior border of the IT band identified, the fascia was incised with a new knife just above any perforators from the IT band. The TFL muscle belly was bluntly dissected away from the fascia and moved laterally. The fat between TFL and rectus was identified to ensure the dissection was not within the TFL. Blunt dissection created space between abductors and the capsule and retractor was placed over the lateral femoral neck. The fibers of the rectus femoris tendon were identified and these were freed from the anterior capsule. A second cobra retractor was placed around the medial femoral neck. The TFL was further retracted laterally to show the deep fascia. Careful dissection through this layer identified three main crossing vessels of the lateral femoral circumflex. These were cauterized in multiple locations and then cut without any noticeable bleeding. The TFL was further released bluntly from the deep fascia to expose anterior hip capsule and fat The Len orthopaedic retractor was then placed beneath the TFL and against sartorius and medial soft tissues to protect and retract the soft tissues. A T-capsulotomy was then performed starting at the superior lateral acetabulum and moving distally to the intertrochanteric ridge. There was a large effusion which was evacuated. These capsular flaps were tagged with a No. 1 Ethibond and elevated from within. The capsular flaps were released to the shoulder of the lateral neck and to the lesser trochanter to give excellent visualization of the proximal femur. A synovectomy was performed in the anterior hip capsule. A neck osteotomy was performed using an oscillating saw based on preoperative templates. This cut started in the shoulder and of the lateral neck and exited medially. The saw was at all times directed medially to avoid injury to the greater trochanter. Gentle traction was applied to the leg and the osteotomy opened. The femoral head was removed with a corkscrew, making sure to protect the TFL on its exit. This was measured on the back table to determing the starting reamer size. Portions of the rectus obscuring visualization were mini maritza elevated off the superior acetabulum. An anterior retractor was placed over the anterior wall between capsule and labrum and attached to the Gripper retraction system. A posterior retractor was placed similarly. Continued synovectomy was performed. This provided excellent visualization. The contents of the cotyloid fossa were removed with electrocautery and the labrum was removed with a knife. There was a notable floor osteophyte. There was significant chondromalacia of the superior acetabulum. Acetabular reaming began with a 50mm reamer. This first reaming was directed anterior to posterior and medial to get down to the true floor. This was inspected and reamed until the true floor was reached. The anterior retractor was then released and entry and exit was provided by traction on the capsular flaps. I then reamed sequentially up to a 54mm reamer where good fit was obtained. The larger reamers were oriented based on anatomical reference of the anterior and lateral brewster to ensure proper abduction and anteversion. Positioning and size was confirmed with the fluoroscopy. A 54mm Depuy Warren acetabular component was selected. The acetabulum was reamed around the periphery with the selected acetabular size to prevent a rim fit. The deep tissues were irrigated. The acetabular component was then impacted in a position of about 40-45 degrees of abduction and 15-20 degrees of anteversion, using the patient?s anatomy as the ultimate landmark. Fluoroscopy was used to confirm this. There was excellent jammer hooker of the acetabular component and the inserting handle was removed. The acetabular liner, Depuy [id number] polyethylene liner, was inserted and lined up with the tines of the acetabular component. There was no soft tissue interposition. The liner was then impacted into position and confirmed to be well-seated. A portion of the melisa-articular cocktail was then injected around the acetabulum into the capsule and periosteum. This cocktail consisted of 123mg of Ropivacaine, 0.25mg of Epinephrine, 0.04mg of Clonidine, and 15mg of Ketorolac, diluted to 50cc. Traction was released from the femur. The leg was rotated to 120 degrees. Any remaining medial capsule was released until the lesser trochanter was easily palpable. A Villegas retractor was placed medially. The lateral capsule was further released into the shoulder to allow access to the greater trochanter. A Villegas retractor was placed over the greater trochanter which allowed the trochanter to flip in front of the capsule for excellent exposure. The leg was brought down into maximal extension and 20 degrees of adduction while ensuring there was no impingement on the acetabulum. Any remnant capsule within the trochanter was released. Piriformis and obturator externis were identified and protected. There was excellent access to the proximal femur. The lateral neck remnant was removed with a rongeur. A blunt canal probe was used to identify the canal and trajectory for later broaching. A box osteotome initiated the broach course. A small curved rasp and a curved curette were used to work laterally. Broaching then began with a size 8 Corail broach. This was inserted manually around the trochanter and into the canal before mallet blows. The broach was seated to a few millimeters below the cut level based on the neck cut and the preoperative template. Sequential broaching was continued with the Zonbo Mediacise pneumatic broaching device until a tight fit was obtained with good rotational control of the femur. A trial standard neck was inserted along with a +5 trial head. The leg was brought out of extension and adduction and then reduced with traction and internal rotation. The leg was stable anteriorly in a position of 30 degrees of extension and 90 degrees of external rotation. Fluoroscopy was used to ensure there was no fracture and the stem was seated well. Leg lengths were checked with an AP pelvis and pelvic reference points. [employer] navigation system was used to confirm appropriate positioning and leg length and offset. This unfortunately did not increase offset enough and added too much leg length. However, switching to a coxa vara neck angle and advancing the stem, correct offeset and leg length could be obtained. Once content with the desired offset and leg lengths, the leg was brought back into extension, external rotation and adduction. The periosteum and surrounding tissue was injected with remaining portion of the melisa-articular cocktail. The proximal femur was irrigated as well as the deep tissues. The Depuy Corail Coxa Vara stem, size 11, was then manually inserted into the proximal femur making sure to control rotation. It was then malleted into position with light blows, giving breaks to allow bone expansion and decrease risk of fracture. The selected Depuy Altrx Ceramic Head, size 36+5mm, was then placed onto the clean and dry trunnion and secured with impaction onto the tapered fit. The leg was brought back out of extension and adduction and reduced with traction and internal rotation. Stability was confirmed with no shuck at 90 degrees of external rotation and 30 degrees of extension. No impingement through range of motion arc. Final x-ray images were obtained with fluoroscopy to confirm adequate positioning and no intraoperative fracture. The deep tissues were thoroughly irrigated with Irrisept chlorhexadine solution. The capsule was then reapproximated with the previously placed Ethibond sutures. The TFL fascia was finally closed with a No. 2 Stratafix, barbed s uture. Deep tissues were then reapproximated with 0 Vicryl and a running 2-0 Vicryl. The skin was closed with a running 4-0 Monocryl in a subcuticular fashion. This was reinforced with skin glue. The second dose of TXA 1g was administered intravenously. A Mepilex silver dressing was applied. LEFT Side Keeping the back table sterile, the drapes were removed, light handles changed, and fluoroscopy switched rooms sides. Once again, a AP hip was obtained to serve as a reference for determining leg lengths. The left leg was then prepped with Chloraprep and draped in a standard fashion. A second prep with Chloraprep was performed prior to placement of a shower-curtain type drape with Iodine impregnated skin protection. A timeout was once again performed to ensure that there were no issues to proceed. An obliquely oriented incision was made starting lateral to the ASIS and running distal over the Tensor Fascia Cris (TFL) muscle belly toward the fibular head, approximately 10cm. The skin and soft tissue was dissected sharply, through Pramod?s fascia, and to the fascia of the TFL. With the fascia and superior border of the IT band identified, the fascia was incised with a new knife just above any perforators from the IT band. The TFL muscle belly was bluntly dissected away from the fascia and moved laterally. The fat between TFL and rectus was identified to ensure the dissection was not within the TFL. Blunt dissection created space between abductors and the capsule and retractor was placed over the lateral femoral neck. The fibers of the rectus femoris tendon were identified and these were freed from the anterior capsule. A second cobra retractor was placed around the medial femoral neck. The TFL was further retracted laterally to show the deep fascia. Careful dissection through this layer identified three main crossing vessels of the lateral femoral circumflex. These were cauterized in multiple locations and then cut without any noticeable bleeding. The TFL was further released bluntly from the deep fascia to expose anterior hip capsule and fat The Len orthopaedic retractor was then placed beneath the TFL and against sartorius and medial soft tissues to protect and retract the soft tissues. A T-capsulotomy was then performed starting at the superior lateral acetabulum and moving distally to the intertrochanteric ridge. These capsular flaps were tagged with a No. 1 Ethibond and elevated from within. The capsular flaps were released to the shoulder of the lateral neck and to the lesser trochanter to give excellent visualization of the proximal femur. A neck osteotomy was performed using an oscillating saw based on preoperative templates. This cut started in the shoulder and of the lateral neck and exited medially. The saw was at all times directed medially to avoid injury to the greater trochanter. Gentle traction was applied to the leg and the osteotomy opened. The femoral head was removed with a corkscrew, making sure to protect the TFL on its exit. This was measured on the back table to determing the starting reamer size. Portions of the rectus obscuring visualization were minimally elevated off the superior acetabulum. An anterior retractor was placed over the anterior wall between capsule and labrum and attached to the Gripper retraction system. A posterior retractor was placed similarly. This provided excellent visualization. The contents of the cotyloid fossa were removed with electrocautery and the labrum was removed with a knife. There was a notable floor osteophyte. There was significant chondromalacia of the superior acetabulum. Acetabular reaming began with a 50mm reamer. This first reaming was directed anterior to posterior and medial to get down to the true floor. This was inspected and reamed until the true floor was reached. The anterior retractor was then released and entry and exit was provided by traction on the capsular flaps. I then reamed sequentially up to a 54mm reamer where good fit was obtained. The larger reamers were oriented based on anatomical reference of the anterior and lateral brewster to ensure proper abduction and anteversion. Positioning and size was confirmed with the fluoroscopy. A 54mm Depuy Warren acetabular component was selected. The deep tissues were irrigated. The acetabular component was then impacted in a position of about 40-45 degrees of abduction and 15-20 degrees of anteversion, using the patient?s anatomy as the ultimate landmark. Fluoroscopy was used to confirm this. There was excellent jammer hooker of the acetabular component and the inserting handle was removed. The acetabular liner, Depuy [id number] polyethylene liner, was inserted and lined up with the tines of the acetabular component. There was no soft tissue interposition. The liner was then impacted into position and confirmed to be well-seated. A portion of the melisa-articular cocktail was then injected around the acetabulum into the capsule and periosteum. This cocktail consisted of 123mg of Ropivacaine, 0.25mg of Epinephrine, 0.04mg of Clonidine, and 15mg of Ketorolac, diluted to 50cc. Traction was released from the femur. The leg was rotated to 120 degrees. Any remaining medial capsule was released until the lesser trochanter was easily palpable. A Villegas retractor was placed medially. The lateral capsule was further released into the shoulder to allow access to the greater trochanter. A Villegas retractor was placed over the greater trochanter which allowed the trochanter to flip in front of the capsule for excellent exposure. The leg was brought down into maximal extension and 20 degrees of adduction while ensuring there was no impingement on the acetabulum. Any remnant capsule within the trochanter was released. Piriformis and obturator externis were identified and protected. There was excellent access to the proximal femur. The lateral neck remnant was removed with a rongeur. A blunt canal probe was used to identify the canal and trajectory for later broaching. A box osteotome initiated the broach course. A small curved rasp and a curved curette were used to work laterally. Broaching then began with a size 8 Corail broach. This was inserted manually around the trochanter and into the canal before mallet blows. The broach was seated to a few millimeters below the cut level based on the neck cut and the preoperative template. Sequential broaching was continued until a tight fit was obtained with good rotational control of the femur. A trial high offset neck was inserted along with a +1.5 trial head. The leg was brought out of extension and adduction and then reduced with traction and internal rotation. The leg was stable anteriorly in a position of 30 degrees of extension and 90 degrees of external rotation. Fluoroscopy was used to ensure there was no fracture and the stem was seated well. Leg lengths were checked with an AP pelvis and pelvic reference points. [employer] navigation system was used to confirm appropriate positioning and leg length and offset. Once content with the desired offset and leg lengths, the leg was brought back into extension, external rotation and adduction. The periosteum and surrounding tissue was injected with remaining portion of the melisa-articular cocktail. The proximal femur was irrigated as well as the deep tissues. The Depuy Corail High Offset stem, size 12, was then manually inserted into the proximal femur making sure to control rotation. It was then malleted into position with light blows, giving breaks to allow bone expansion and decrease risk of fracture. The selected Depuy Altrx Ceramic Head, size 36+1.5mm, was then placed onto the clean and dry trunnion and secured with impaction onto the tapered fit. The leg was brought back out of extension and adduction and reduced with traction and internal rotation. Stability was confirmed with no shuck at 90 degrees of external rotation and 30 degrees of extension. No impingement through range of motion arc. Final x-ray images were obtained with fluoroscopy to confirm adequate positioning and no intraoperative fracture. The deep tissues were thoroughly irrigated with Irrisept chlorhexadine solution. The capsule was then reapproximated with the previously placed Ethibond sutures. The TFL fascia was finally closed with a No. 2 Stratafix, barbed suture. Deep tissues were then reapproximated with 0 Vicryl and a running 2-0 Vicryl. The skin was closed with a running 4-0 Monocryl in a subcuticular fashion. This was reinforced with skin glue. A Mepilex silver dressing was applied. At the end of the case, all counts were correct. Zach was transferred to the hospital bed without difficulty and suffering no apparent complication. She has a good prognosis. Physical therapy will start today and without restrictions, weight-bearing as tolerated. Aspirin 81mg BID will be used for DVT prophylaxis.
--- NOTE | 2023-06-08 13:18 | ANES.POST_ITS ---
Postoperative Evaluation Date, Time and Location Date Performed: 06/08/23 Time Performed: 13:18 Patient Location: Day Surgery Unit Vital Signs Most Recent Imported Vital Signs: Most Recent Vital Signs Temp Pulse Resp BP Pulse Ox 36.4 C L 66 16 116/82 100 06/08/23 13:14 06/08/23 13:14 06/08/23 13:14 06/08/23 12:16 06/08/23 13:14 Pain Score Most Recent Pain Score: Most Recent Pain Score Pain Level 5 06/08/23 13:14 Assessment Mental Status: Awake (Alert & Oriented to Patient Baseline) Airway and Respiratory Function: Patent airway with normal (patient baseline) respiratory exam Cardiovascular Function: Hemodynamically Stable Hydration Status: Adequately Hydrated Nausea & Vomiting: No Nausea or Vomiting Pain: Pain is tolerable per patient Peripheral Nerve Block: Patient did not receive a nerve block Postoperative Comments:: Pt c/o irritation of right eye. Tetracaine drops applied with immediate relief. Pt instructed to monitor eye and if she continues to have symptoms tomorrow to contact her central melt specialist. Rito Sanchez CRNA
--- NOTE | 2023-06-08 13:18 | NUR.NOTE ---
C/O right eye irritation. Dr. Rosado aware. [employer] notified. Eye drops given to right eye with relief. Nursing Note:
[2023-06-08] MEDS: oxyCODONE 5 MG TAB PO ×2 (13:40→19:32)
[2023-06-08] MEDS: Ondansetron 4 MG/2 ML VIAL IVP (14:46)
--- NOTE | 2023-06-08 14:54 | NUR.NOTE ---
Nursing Note Pale, C/O hot flash. BP 78/60. HOB decreased to 15 degrees. Fluid bolus initiated. BP increased to 81/63. Symptoms improving. Anesthesia made aware via Webex. 200 ml fluid bolus ordered. :
--- NOTE | 2023-06-08 15:03 | PT.INNT ---
PT Notes Visit Reasons: B/L THR Per update from Nurse Mendiola as of 15:03 PM, patient remains hypotensive and is not stabilized enough for PT evaluation. Will hold off until go-signal is given by DSU nurse.
[2023-06-08] MEDS: ePHEDrine 50 MG/ML VIAL 25 MG IM (15:13)
[2023-06-08] MEDS: ceFAZolin 1 GM/50 ML BAG IVPB ×2 (16:26→23:54)
--- NOTE | 2023-06-08 17:41 | PT.INNT ---
PT Notes Visit Reasons: B/L THR Patient arrived 15 minutes ago and remains hypotensive and weak. Will hold off on eval until tomorrow. Dr. Rosado aware and in agreement.
[2023-06-08] MEDS: Aspirin E.C. 81 MG TABEC PO (19:29)
[2023-06-08] MEDS: Polyethylene Glycol 3350 17 GM PACKET PO (19:30)
[2023-06-08] MEDS: Midodrine 2.5 MG TAB 10 MG PO (19:31)
[2023-06-08] MEDS: Celecoxib 200 MG CAP PO (19:31)
[2023-06-08] MEDS: Normal Saline 10 ML VIAL IJ (19:33)
[2023-06-08] MEDS: traMADol 50 MG TAB PO (22:18)
[2023-06-08] MEDS: Docusate Sodium 100 MG CAP PO (22:18)
[2023-06-09] VITALS (12 sets, daily range): BP systolic 87–115; BP diastolic 54–75; PULSE 60–81; RESP 14–22; TEMP 35.4–37.9; O2SAT 94–99
[2023-06-09] MEDS: oxyCODONE 5 MG TAB PO ×2 (00:01→03:06)
[2023-06-09] MEDS: Ondansetron 4 MG/2 ML VIAL IVP (06:30)
[2023-06-09] MEDS: Lactated Ringers 1,000 ML 80 ML IV ×2 (06:40→13:30)
[2023-06-09 06:58] LABS: HCT 22.2 % (36.0-46.0); HGB 7.3 g/dL (11.2-15.7); MCH 30.8 pg (27.0-33.0); MCHC 32.9 % (32.0-36.0); MCV 94 fL (80-95); MPV 10.3 fL (8.0-11.0); Platelet Count 154 10^3/uL (130-400); RBC 2.37 10^6/uL (3.93-5.22); RDW 13.7 % (11.7-14.6); WBC 6.33 10^3/uL (4.4-10.8)
[2023-06-09 07:11] LABS: Anion Gap 5.4 mmol/L (3-11); BUN 19 mg/dL (7-18); CO2 28.6 mmol/L (21.0-32.0); CREATININE 0.8 mg/dL (0.55-1.02); Calcium 8.2 mg/dL (8.5-10.1); Chloride 101 mmol/L (98-107); Estimated GFR 80.21 (mL/min/1.73m2); Glucose 123 mg/dL (74-106); Potassium 4.1 mmol/L (3.5-5.1); Sodium 135 mmol/L (136-145)
--- NOTE | 2023-06-09 07:40 | W.PM.PROGNOT ---
Date of Service Date of service: 06/09/23 Time of Service: 07:40 Assessment and Plan Assessment and plan (1) Degenerative joint disease of both hips: Status: Acute Assessment and plan: Sameer is postop day #1 status post bilateral hip replacements. Technically there were no significant issues. There was expected blood loss but nothing excessive. Her x-rays intraoperative showed no sign of complication. She has no significant pain about the hips which is concerning.. We will attempt mobilization once the nausea is improved. Mepilex dressing stay in place. Weight-bear as tolerated without restrictions. Ketorolac 15 mg every 6 hours along with acetaminophen. Utilize tramadol primarily for pain if necessary. (2) Acute blood loss as cause of postoperative anemia: Status: Acute Assessment and plan: Only 300 cc of blood loss during the surgery. However, hemoglobin did drop into the sevens this morning. Since she has some hypotension which has needed midodrine as well as her persistent nausea, I would recommend we proceed with 1 unit transfusion of blood. I am over this will help out with her current symptoms allow her to be more mobile. While there could be some ongoing oozing within the musculature of either hip from the surgery, there are no signs concerning for ongoing bleeding which needs to otherwise be addressed. (3) Post-operative nausea and vomiting: Status: Acute Assessment and plan: Persistent nausea and low-volume emesis status post surgery. Is unclear the etiology of this. A portion of this may be nerve related versus recovery from the sedation versus a stress from surgery versus the acute drop in hemoglobin. Nevertheless, we will continue to treat with ondansetron as needed. I also have ordered 0.5 mg of Ativan to be given as well for both anxiety and nausea hoping that this may help. Subjective Subjective Interval history since last seen: Zach unfortunately has been having some pain, most of the right side. However, the pain has been minimal. Her greatest issue has been her nausea. She has had multiple episodes of low-volume emesis. She does report some dry heaving at times. She does report ingesting chills although no vital sign abnormalities. Blood pressures has been manageable although still on the low side with the use of midodrine. No additional lightheadedness episodes. Exam Narrative Exam Narrative: Slightly pale appearing. Maybe some mild diaphoresis. Alert and oriented x3. Conversant. Holding the emesis bag with 2 episodes of low-volume emesis. Evaluation of the right lower extremity shows some mild changes of bruising about the right thigh with no drainage on the dressing. Thigh is compressible. She can tolerate some gentle internal/external rotation of the hip without significant difficulty. Evaluation of the left leg shows very similar finding with some signs of bruising about the proximal left thigh and some swelling but easily compressible. She tolerates internal and external rotation without pain. Distally she has intact dorsiflexion and plantarflexion of the ankles as well as extension and flexion of the great toe bilaterally. Sensation intact light touch over the deep and superficial peroneal nerve bilaterally. Palpable DP and PT pulse. Objective Last Vital Signs Temp 36.6 C 06/09/23 07:33 Pulse 77 06/09/23 07:33 Resp 22 06/09/23 07:33 BP 115/67 06/09/23 07:33 Pulse Ox 96 06/09/23 07:33 Laboratory Results - last 24 hr 06/09/23 06/09/23 06/09/23 05:52 05:52 07:36 WBC 6.33 RBC 2.37 L Hgb 7.3 L Hct 22.2 L MCV 94 MCH 30.8 MCHC 32.9 RDW 13.7 Plt Count 154 MPV 10.3 Sodium 135 L Potassium 4.1 Chloride 101 Carbon Dioxide 28.6 Anion Gap 5.4 BUN 19 H Creatinine 0.8 Est GFR (CKD-EPI 2020) 80.21 Glucose 123 H Calcium 8.2 L Crossmatch See Detail Time Spent with Patient Time Spent with Patient: 25-34 minutes Time was spent: preparing to see the patient(eg.review tests), obtaining and/or reviewing separately otained hiistory, ordering medications,tests, procedures, indepentently interpreting results, counseling the patient and care coordination
[2023-06-09] MEDS: ceFAZolin 1 GM/50 ML BAG IVPB (07:59)
[2023-06-09] MEDS: Ketorolac 15 MG/ML VIAL IVP ×2 (08:40→14:16)
[2023-06-09] MEDS: diphenhydrAMINE 25 MG CAP PO (09:51)
[2023-06-09] MEDS: ACETAMINOPHEN 1,000 MG/100 ML BTL 400 MG IVPB ×2 (09:51→15:25)
--- NOTE | 2023-06-09 12:27 | NUR.NOTE ---
Nursing Note: IV fluids stopped at 0900. Had to wait to start new bag bc of MD orders for blood transfusion. Will start LR when blood finishes,
--- NOTE | 2023-06-09 12:42 | PDOC.CMIN ---
Date of service: 06/09/23 Time of Service: 12:43 Care Management Initial Assmt Initial Assessment REASON FOR HOSPITALIZATION:: Degenerative joint disease of both hips, status post bilateral hip replacements PREVIOUS FUNCTIONAL STATUS/SOCIAL/FAMILY SUPPORTS:: Zach is retired and lives in her 2 story home in [place] with her Raymond. She has 2 adult daughters, who are very supportive. She has a cat and a horse. She is independent at baseline and uses a cane. Per pt, she has not driven in several years due to hip pain and limitations using foot pedals. CURRENT FUNCTIONAL STATUS:: Zach is lying in bed when CM met with her. She is awake and engages in conversation, her is sitting at her bed side. Her main worry discharging home is that her bedroom is on the second floor of her house. Her is planning on making her a room on the first floor until she is able to do stairs. ADVANCE DIRECTIVES:: At home, Not on file at [facility] Has patient been provided with info about the portal/API?: Yes Did the patient sign up for the portal?: No CODE STATUS:: Full Code INSURANCE COVERAGE / FINANCIAL ISSUES:: BC/BS Medicare CURRENT HOME/COMMUNITY SERVICES/EQUIPMENT:: None PRIMARY CARE PHYSICIAN:: Francisco Hunt POTENTIAL DISCHARGE NEEDS:: [facility] PT, follow up appointments with PCP and Ortho, discharge plan of care. PATIENT/FAMILY EDUCATION NEEDS:: Review discharge instructions, limitations, medications and plan to follow up with community providers. Discuss ask me three and goals of self care. TRANSPORTATION:: Via private vehicle with . PLAN:: Sameer is postop day #1 status post bilateral hip replacements. PT consult is pending for this evening. Anticipate Sameer will discharge home via private vehicle with , possibly SNF for STR, if needed. CM will follow. PFSH All Active Problems (Updated 06/09/23 @ 07:45 by Nolan Rosado MD) Post-operative nausea and vomiting (Acute) Acute blood loss as cause of postoperative anemia (Acute) Rheumatoid factor positive (Acute) Chronic pain (Chronic) Fibromyalgia (Acute) Hyperlipidemia (Acute) Degenerative joint disease of both hips (Acute) Medical History (Updated 06/09/23 @ 07:45 by Nolan Rosado MD) Anemia Depression with anxiety Hematuria Low back pain Migraine headache Neuropathy Pancytopenia Spinal stenosis, cervical region Vitamin D deficiency Surgical History (Updated 06/08/23 @ 06:05 by Ravi Portillo) Hx of section Social History Smoking/Tobacco Use Status: Never Smoking risk assessment performed?: Yes Alcohol Intake: current Alcohol Intake frequency: a few times a week Drug use: Never Substance use type: does not use Housing: house Do you feel safe at home: Yes Do you feel safe in your relationship?: Yes
--- NOTE | 2023-06-09 13:48 | CHAPLAIN ---
Zach was eating lunch in bed when I visited. Her was with her. She didn't feel well after surgery, and was being given some blood. Her nurse let her know she'll be staying another night. Zach and her live in [facility], moving to [place] from [place]. Their daughter and granddaughter are visiting to help out after Zach's surgery. Both Zach and her were very friendly and easily engaged in a conversation.
[2023-06-09] MEDS: Midodrine 2.5 MG TAB 10 MG PO ×2 (14:16→19:21)
[2023-06-09] MEDS: Normal Saline Flush 10 ML SYR IV (15:27)
--- NOTE | 2023-06-09 16:43 | IN_ITS ---
Date of service: 06/09/23 Time of Service: 15:45 PT Notes Visit Reasons: OA B/L Hip Physical Therapy Inpatient Initial Evaluation Date: 06/09/2023 Referring Doctor: CHELLY Washington PT Orders: PT CONSULT: S/P Ortho surgery Precautions: Fall. Standard. WBAT on B LE with AD. Patient Profile/Admitting Diagnosis: Sameer is a 67-year-old female with degenerative joint disease of both hips and is status post bilateral total hip arthroplasties on postoperative day 1 admitted for management of postoperative anemia as well as of postoperative nausea and vomiting. PMHX: All Active Problems? Degenerative joint disease of both hips (Acute) Hyperlipidemia (Acute) Fibromyalgia (Acute) Chronic pain (Chronic) Rheumatoid factor positive (Acute) Medical History? Anemia Depression with anxiety Hematuria Low back pain Migraine headache Neuropathy Pancytopenia Spinal stenosis, cervical region Vitamin D deficiency Social History/Home Situation: Lives with in a private home with 2 steps to enter. Independent with all aspects of ADLs prior to surgery. Ocasionally uses SPC. Equipment Owned/DME: S[facility] Subjective: Feels much better after blood transfusion. Still mildly lightheaded but was able to complete today's ambulation activity. Reports being achy in B thighs, felt better with walking in the hallway. Per daughter Adriana patient is a lot more erect and walking significantly better. Objective: General Observation: Mepilex Ag over surgical incision. TEDS to be legs. IV access through left UE. Daughter present during evalaution. Mental Status: Alert and oriented as to person, place, time, and purpose. Able to pay attention, focus, and respond appropriately. Pain: 3-4/10 in B thighs and hips Vital Signs: BP softened to 87/61 mmHg in standing but Nurse Marsha said that patient has been put on pressor drug ROM: Right Lower Extremity: Hip flexion lacks the last 25% of AROM due to discomfort. Hip abduction acks the last 25% of AROM due to discomfort. Knee flexion WFL. Ankle dorsiflexion WFL. Ankle plantarflexion WFL. Left Lower Extremity: Hip flexion lacks the last 25% of AROM due to discomfort. Hip abduction acks the last 25% of AROM due to discomfort. Knee flexion WFL. Ankle dorsiflexion WFL. Ankle plantarflexion WFL. Strength: Right Lower Extremity: Hip flexors 3-/5. Hip abductors 3-/5. Knee flexors 4-/5. Knee extensors 4-/5. Ankle dorsiflexors 4/5. Ankle plantarflexors 4/5. Left Lower Extremity: Hip flexors 3-/5. Hip abductors 3-/5. Knee flexors 4-/5. Knee extensors 4-/5. Ankle dorsiflexors 4/5. Ankle plantarflexors 4/5. Bed Mobility/Transfers: Supine to sit contact guard assist Sit to stand contact guard assist Stand to sit contact guard assist Gait: Instructed patient with level surface ambulation of 75 feet + 75 feet + 100 feet requiring minimal assist. Step through gait pattern. LESLIE Vázquez doing wheelchair follow for safety. Daughter Adriana helped with IV pole management. BP went up to 90/60s mmHg in the middle of the walk. Balance: Static Sitting: Normal Dynamic Sitting: Normal Static Standing: Fair Dynamic Standing: Fair Special Tests: Mobility Limitations Standardized Measure [facility] AM-PAC 6 clicks Basic Mobility Inpatient Short Form: Raw Score: 20 CMS Score: 36% deficit Informed Consent/Education: Patient was instructed in purpose of PT consult and plan of care. Agreeable to proceed with established PT POC to achieve personal goals. ASSESSMENT: Patient tolerated level surface ambulation despite low BP, wheelchair follow provided for safety. Nurse Marsha stated patient has been on pressor medications. Patient less symptomatic compared to yesterday. Stable with walking using FWW. Will need FWW for home. Patient presents with clinical signs and symptoms consistent with current/admitting diagnoses that have resu lted to mobility limitations, gait instability, generalized weakness, and overall ADL decline as demonstrated by the following impairment level findings: 1. Decreased strength to B hip and knee major muscle groups 2. Impaired standing balance 3. Impaired activity tolerance 4. Limitation of joint range of motion in B hips 5. Low blood pressure increasing fall risk Impairments are contributing to the following functional limitations: 1. Decline in bed mobility skills 2. Decline in transfer skills 3. Difficulty with ambulation without assistive device and physical assistance 4. Increased completion time for mobility ADL performance 5. Increased risk for falls 6. Difficulty with managing steps alone safely Patient is assessed as a 90651 moderate complexity based on the following: History: 67-year-old female with past medical history as indicated above Examination: Demonstrable impairment in strength, balance, and mobility level with underlying impairments and functional limitations as exhibited above as well as deficit score of 36% utilizing the [facility] Mobility Inpatient Short Form Presentation: Evolving Decision Makin moderate complexity Goals: Goals X1 week 1. Supine-Sit independent 2. Sit-Supine independent 3. Sit-Stand independent 4. Stand-Sit independent with FWW 5. Bed-Chair independent with FWW 6. Chair-Bed independent with FWW 7. Independent gait on level surface with use of FWW for at least 300 feet without report of pain nor dyspnea 8. Independent stair negotiation while holding onto B rails for at least 3 steps without report of pain nor dyspnea 9. Independent with home exercise program 10. Good static and dynamic standing balance/tolerance Plan of Care/Treatment Plan: 1-2x/day, 7 days/week x 1 week. Plan of care has been reviewed with the COAL FEEDER OPERATOR providing the service under Physical Therapy direction. Initiate Physical Therapy intervention for pain management as needed, strengthening, bed mobility, transfers, gait, stairs, balance training, and use of assistive device. DISCHARGE RECOMMENDATIONS: [] Home with no services [] [] Home with services [specify] [X] Home with outpatient PT. Home when medically cleared by orthopedic surgeon. Recommend outpatient PT services in order to optimize functional mobility outcomes and facilitate return to independent community ambulation without assistive device. [] SNF for continued rehabilitation [] [] District Resource Officer Care [] [] SNF versus LTC based on ability to participate and progress [] TREATMENT CODE/TIME: 9716 2 x 20 minutes (1 unit), 9753 0 x 24 minutes (2 units) beginning at 15:45 PM. Thank you for the opportunity to participate in the care of this patient. Yanni Bell PT, DPT, CLT [facility] [place], [place]
[2023-06-09 18:07] LABS: HCT 26.7 % (36.0-46.0)
[2023-06-09] MEDS: Docusate Sodium 100 MG CAP PO (19:22)
[2023-06-09] MEDS: Polyethylene Glycol 3350 17 GM PACKET PO (19:22)
[2023-06-09] MEDS: Aspirin E.C. 81 MG TABEC PO (19:22)
[2023-06-10] MEDS: ACETAMINOPHEN 1,000 MG/100 ML BTL 400 MG IVPB ×2 (00:09→08:30)
[2023-06-10 00:15] VITALS: BP 94/59; PULSE 77; RESP 18; TEMP 37.1; O2SAT 94
[2023-06-10 03:20] VITALS: BP 100/65; PULSE 74; RESP 14; TEMP 37.6; O2SAT 95
[2023-06-10 07:38] VITALS: BP 115/71; PULSE 83; RESP 16; TEMP 37.3; O2SAT 98
[2023-06-10] MEDS: Celecoxib 200 MG CAP PO (08:28)
[2023-06-10] MEDS: Cyanocobalamin 500 MCG TAB 2500 MCG PO (08:28)
[2023-06-10] MEDS: Pantoprazole 40 MG TABCR PO (08:29)
[2023-06-10] MEDS: Aspirin E.C. 81 MG TABEC PO (08:29)
[2023-06-10] MEDS: Multivitamin TAB 1 TAB PO (08:29)
[2023-06-10] MEDS: Cholecalciferol (Vitamin D3) 1,000 UNIT TAB 1000 UNITS PO (08:29)
[2023-06-10] MEDS: Dexamethasone 4 MG TAB PO (08:29)
[2023-06-10] MEDS: Docusate Sodium 100 MG CAP PO (08:30)
--- NOTE | 2023-06-10 08:50 | PDOC.CMPRO ---
Date of service: 06/10/23 Time of Service: 08:50
--- NOTE | 2023-06-10 09:40 | PT.INTREAT ---
Date of service: 06/10/23 Time of Service: 09:11 PT Notes Visit Reasons: OA B/L Hip Inpatient Physical Therapy Treatment Note [facility] Date: 06/10/23 PRECAUTIONS: Fall, standard, WBAT on B LE with AD SUBJECTIVE: Patient reports feeling stiff, takes a minute to get going however no pain in the hips. Long sitting in bed, agreeable to therapy. OBJECTIVE: PAIN: none, although does feel muscles are stiff. BED MOBILITY/TRANSFERS Sit-stand: independent Stand-sit: independent Bed-Chair: independent Chair-bed: independent GAIT Assistive Device: FWW Weight bearing: as tolerated Assist: independent Distance: 325 Deviation: slow pace, reduced step height, reduced stride length, appears to put approx 50% weight through arms / walker. Good symmetry in step length. Foot clears floor, no shuffling noted. No LOB, no SOB. Does report feeling spent and a little woozy at the end of therapy. VITALS: monitored by nursing staff. ASSESSMENT: Patient tolerates therapy well. Wonders whether she is expected to go home today or tomorrow. PLAN: Continue progress per plan of care. Patient has 2 stairs to enter home; try stairs this afternoon. TREATMENT CODE/TIME: 90317 Gait 26 minutes beginning at 9:11
--- NOTE | 2023-06-10 10:01 | W.PM.DS.N ---
Date of service: 06/10/23 Time of Service: 07:30 DS: Diagnosis Discharge Diagnosis (1) Degenerative joint disease of both hips: Status: Acute (2) Acute blood loss as cause of postoperative anemia: Status: Acute (3) Post-operative nausea and vomiting: Status: Acute Discharge Plan Disposition Patient Disposition: Home W/Home Health Services Condition: Good Discharge Details Reason For Visit: OA B/L Hip Admit Date/Time: 06/08/23 15:41 Admit Provider: Nolan Rosado Attending Provider: Nolan Rosado Primary Care Provider: Francisco Hunt Hospital Course Hospital Course: Patient was admitted to the medical/surgical floor following the procedure. The surgery was tolerated well without any notable medical, surgical, or anesthetic complications. Mobilization began postoperatively. [He][She] was voiding spontaneously. Vitals were stable. Physical therapy worked with the patient and was cleared for discharge home. No acute medical issues. Pain was controlled on oral regimen. Home Meds and New Rx's Prescriptions: New celecoxib 200 mg capsule 200 mg PO BID Qty: 60 0RF acetaminophen 500 mg tablet 1,000 mg PO TID Qty: 90 3RF dexamethasone 4 mg tablet 4 mg PO DAILY Qty: 2 0RF pantoprazole 40 mg tablet,delayed release (DR/EC) 40 mg PO DAILY Qty: 30 0RF aspirin 81 mg tablet,delayed release (DR/EC) 81 mg PO BID Qty: 60 0RF ondansetron 4 mg tablet,disintegrating 4 mg PO Q6H PRNQty: 20 0RF Continued fluticasone propionate [Flonase Allergy Relief] 50 mcg/actuation spray,suspension 1 spray intranasal BID Rx Instructions: administer into each nostril cetirizine 10 mg tablet 10 mg PO DAILY PRN cyanocobalamin (vitamin B-12) 2,500 mcg tablet 2,500 mcg PO DAILY multivitamin 1 EACH capsule 1 cap PO DAILY cholecalciferol (vitamin D3) 1,000 UNITS tablet 1 tab PO DAILY omega-3 fatty acids-fish oil 1 EACH capsule 1 cap PO DAILY Discontinued acetaminophen [Tylenol Arthritis Pain] 650 mg tablet extended release 650 mg PO Q12H Discharge Instructions Additional Instructions: Total Hip Discharge Instructions Activity: The most important activity is to walk. You should try to take short walks a few times a day. You have no restrictions on movement or positioning, but do not try to force what you do. You will find some stiffness and weakness with hip flexion (lifting your knee). Do not try to strengthen this too early, continue to practice walking and stairs and this will come. - Outpatient physical therapy can be helpful to help return you to a normal gait and improve your flexibility and strength. This can start around 2 weeks. For some patients, it?s not necessary. Usually this is determined at the time of discharge or at the first post-operative visit. - You should wear the ANNY hose on both legs for 2 weeks. Dressing: Keep the surgical dressing in place for at least one week. After the first week it may be removed and replace with light gauze and tape or nothing. It may get wet after 3 days but avoid soaking the dressing. If it gets wet, just lightly pat dry. It is important to always keep some gauze between skin folds, especially when you are sitting. Spend some time with the wound exposed when you are lying flat as the incision does wrinkle onto itself. Medications: - You should take Tylenol and an anti-inflammatory Celebrex as your primary pain control medications. If the Celebrex is too expensive or not covered, please call the office for another alternative (Advil/Ibuprofen or Naproxen/Aleve). - You were initially prescribed a stronger pain medication Oxycodone for breakthrough pain, but you may avoid taking that due to nausea. - You have also been prescribed a stomach acid reduction agent Pantoprozole to help reduce stomach acid and reflux. - You have also been prescribed Decadron to help with post-operative nausea and pain. You will take this for two days starting tomorrow. - You will be taking Aspirin 81mg twice a day for DVT prevention unless instructed otherwise. - If you have constipation you should take Colace or Miralax (both [id number]). It takes most people 3-4 days to have a bowel movement. Follow-up: 2 weeks If you have any acute concerns or questions, please do not hesitate to contact the office at [phone]. You may contact Dr. Rosado with any questions after hours through the hospital at [phone] or on his cell phone at [phone]. 1. Encounter Date and Reason I certify that Zach Bolden was seen by Nolan Rosado MD on 06/10/23 and that I had a [id number] encounter with this patient that meets the physician face to face encounter requirements. 2. Clinical Findings Supporting Skilled Need and Homebound Status I certify that home health services are medically necessary, include either intermittent fci and/or physical/speech therapy, and that this patient is homebound in that absences from the home require considerable and taxing effort and are infrequent or of short duration, or are attributable to the need to receive medical care. [X] (a) Attached documentation from encounter provides clinical findings supporting skilled need and homebound status (including what assistance patient requires to leave the home). The encounter with the patient was in whole, or in part, for the following medical condition, which is the primary reason for home health care: OA B/L Hip Halfway: Physical Therapy: Zach would benefit from physical therapy to assist with mobilization s/p bilateral anterior hip replacements. She has no restrictions and is weight bearing as tolerated. Speech Therapy: Homebound: Zach is unable to leave her home unassisted due to weakness and gait dysfunction. 3. Certification and Authentication I certify that I composed the above information based on my clinical judgement relating to this patient's medical condition and, if applicable, clinical findings communicated to me by the NPP or inpatient physician who performed the Home Health Referral. All further orders will be obtained through Dr. Rosado Referrals: Nolan Rosado MD [ [facility] STAFF PHYSICIAN] - Activity:: Activity as Tolerated Equipment/Supplies:: Walker Diet:: As Tolerated Discharge Orders Discharge Orders: Discharge Order (Routine); Ordered 06/10/23 Ordered By: Nolan Rosado DS: Summary Time Spent with Patient providing and/or coordinating discharge services: Less than 30 minutes Status at Discharge Functional status at discharge: uses cane/walker Overall status at discharge: patient is progressing back to baseline Mental Status: mental status grossly normal Speech and Movement: speech and movement normal Mood: congruent mood Affect: normal affect Exam Narrative Exam Narrative: Sitting up in the bed. AAOx3. NAD> RLE dressing c/d/i. Mild ecchymosis and swelling. No pain with IR/ER. +ADF/APF/EHL/FHL. SILT DP/SP/Tib/Fem LLE dressing c/d/i. More ecchymosis in the leg with swelling, yet compressible. No significant pain with hip IR/ER. +ADF/APF/EHL/FHL. SILT DP/SP/Tib/Fem. Psych Mental Status: mental status grossly normal Speech and Movement: speech and movement normal Mood: congruent mood Affect: normal affect DS: Data Vitals/I&O Vitals and I&O: Vital Signs Temperature 37.3 C 06/10/23 07:38 Temperature Source Tympanic 06/10/23 07:38 Pulse 83 06/10/23 07:38 Pulse Rhythm Regular 06/09/23 19:26 Respiratory Rate 16 06/10/23 07:38 Respiratory Effort Normal 06/09/23 19:26 Respiratory Depth Normal 06/09/23 19:26 Respiratory Pattern Normal 06/09/23 19:26 Blood Pressure 115/71 06/10/23 07:38 Blood Pressure Mean 73 06/08/23 16:58 Blood Pressure Position Supine 06/08/23 14:10 Pulse Oximetry 98 06/10/23 07:38 Oxygen Delivery Method Room Air 06/10/23 07:38 Oxygen Flow Rate 0 06/10/23 07:38 Pain Level 0 06/10/23 03:20 Comment RN notified 06/10/23 03:20 Intake & Output 06/09/23 06/09/23 06/10/23 11:59 23:59 11:59 Intake Total 2224.667 / 3674.667 1450 / 3674.667 100 / 100 Output Total 600 / 1300 700 / 1300 400 / 400 Balance 1624.667 / 2374.667 750 / 2374.667 -300 / -300 Intake: IV 2194.667 / 2294.667 100 / 2294.667 100 / 100 Oral 30 / 1130 1100 / 1130 Blood Product 250 / 250 Rbc Leuko Reduced Irradiated 250 / 250 Unit [id number] Output: Urine 250 / 950 700 / 950 400 / 400 Emesis 350 / 350 Other: Urine Color Light Christiane Yellow Light Christiane Urine Appearance Clear Clear Clear Urine Odor None None Comment pt ambulated to bathroom w/stand by assist and walker Emesis Description Bile Voiding Methods Toilet Data Completed and Pending Labs on day of discharge: Labs from last 24 hours 06/09/23 06/09/23 18:03 08:05 Hgb 9.0 L Hct 26.7 L Patient ABO/Rh A Negative Antibody Screen NEGATIVE Crossmatch See Detail PFSH All Active Problems Post-operative nausea and vomiting (Acute) Acute blood loss as cause of postoperative anemia (Acute) Rheumatoid factor positive (Acute) Chronic pain (Chronic) Fibromyalgia (Acute) Hyperlipidemia (Acute) Degenerative joint disease of both hips (Acute) Medical History Anemia Depression with anxiety Hematuria Low back pain Migraine headache Neuropathy Pancytopenia Spinal stenosis, cervical region Vitamin D deficiency Surgical History Hx of section Social History Smoking/Tobacco Use Status: Never Smoking risk assessment performed?: Yes Alcohol Intake: current Alcohol Intake frequency: a few times a week Drug use: Never Substance use type: does not use Housing: house Do you feel safe at home: Yes Do you feel safe in your relationship?: Yes Time Spent with Patient Time Spent with Patient: <45 minutes Time was spent: preparing to see the patient(eg.review tests), ordering medications,tests, procedures and counseling the patient
--- NOTE | 2023-06-10 10:25 | PDOC.CMDIS ---
Date of service: 06/10/23 Time of Service: 10:26 LACE Index Scoring Tool Questions: Length of Stay (in days): 2 Was the patient admitted via the E.D.?: No E.D. Visits: 0 Answers: Total Score: 2 Risk of Readmission: Low Risk Care Management Discharge Plan Reason for Hospitalization: Degenerative joint disease of both hips, status post bilateral hip replacements Discharge Plan: Zach is discharged home with new [facility] services. Pt is driven via private vehicle with . Pt will follow discharge plan of care as instructed, and follow up with community providers and Ortho as recommended. Patient/Family Education Needs: Review discharge instructions, limitations, medications and plan to follow up with community providers. Discuss ask me three. Services Needed at Discharge: Home Health Care Services (New [facility] PT)
[2023-06-10 11:17] VITALS: BP 101/65; PULSE 73; RESP 16; TEMP 37.2; O2SAT 96
--- NOTE | 2023-06-15 14:47 | PT.INDS ---
Date of service: 06/10/23 PT Notes Visit Reasons: OA B/L Hip Physical Therapy Inpatient Discharge Summary Date: 06/10/2023 Date of service: 06/09/2023 through 06/10/2023 This is a clinical summary of care provided for the duration of dates listed above. No charge was made in the completion of this documentation. Referring Doctor: CHELLY Washington PT Orders: PT CONSULT: S/P Ortho surgery Precautions: Fall. Standard.? WBAT on B LE with AD. Patient Profile/Admitting Diagnosis:? Sameer is a 67-year-old female with degenerative joint disease of both hips and is status post bilateral total hip arthroplasties on postoperative day 2 admitted for management of postoperative anemia as well as of postoperative nausea and vomiting. She is discharged to home today with continued post op rehabilitation efforts with PT. PMHX: All Active Problems? Degenerative joint disease of both hips (Acute) Hyperlipidemia (Acute) Fibromyalgia (Acute) Chronic pain (Chronic) Rheumatoid factor positive (Acute) Medical History? Anemia Depression with anxiety Hematuria Low back pain Migraine headache Neuropathy Pancytopenia Spinal stenosis, cervical region Vitamin D deficiency Social History/Home Situation: Lives with in a private home with 2 steps to enter.? Independent with all aspects of ADLs prior to surgery.? Ocasionally uses SPC. Equipment Owned/DME: SPC Subjective: NT. See most recent [employer] notes. Objective: General Observation: NT. See most recent [employer] notes. Mental Status: NT. See most recent [employer] notes. Pain: NT. See most recent [employer] notes. Vital Signs: NT. See most recent [employer] notes. ROM: Right Lower Extremity: Hip flexion lacks the last 25% of AROM due to discomfort. Hip abduction lacks the last 25% of AROM due to discomfort. Knee flexion WFL. Ankle dorsiflexion WFL. Ankle plantarflexion WFL. Left Lower Extremity: Hip flexion lacks the last 25% of AROM due to discomfort. Hip abduction lacks the last 25% of AROM due to discomfort. Knee flexion WFL. Ankle dorsiflexion WFL. Ankle plantarflexion WFL. Strength: Right Lower Extremity: Hip flexors 3-/5. Hip abductors 3-/5. Knee flexors 4-/5. Knee extensors 4-/5. Ankle dorsiflexors 4/5. Ankle plantarflexors 4/5. Left Lower Extremity: Hip flexors 3-/5. Hip abductors 3-/5. Knee flexors 4-/5. Knee extensors 4-/5. Ankle dorsiflexors 4/5. Ankle plantarflexors 4/5. BED MOBILITY/TRANSFERS ? Sit-stand: independent? Stand-sit: independent ? Bed-Chair: independent ? Chair-bed: independent ? GAIT? Assistive Device: FWW? Weight bearing: as tolerated Assist: independent ? Distance:? 325 ? Deviation: slow pace, reduced step height, reduced stride length, appears to put approx 50% weight through arms / walker. Good symmetry in step length. Foot clears floor, no shuffling noted. No LOB, no SOB. Does report feeling spent and a little woozy at the end of therapy.? Balance: Static Sitting: Normal Dynamic Sitting: Normal Static Standing: Fair Dynamic Standing: Fair Special Tests: Mobility Limitations Standardized Measure [facility]-P[facility] 6 clicks Basic Mobility Inpatient Short Form: Raw Score: 23? CMS Score: 11% deficit? ? ? Informed Consent/Education:? Patient was instructed with HEP performance for post op patient management for B RHEA. HEP provided. ASSESSMENT: Patient achieved goals initially established at acute care level and will benefit from continued rehabilitation at home with HH PT for functional mobility progression on varied ground surfaces indoors and outdoors using least restrictive mobility device. Goals: Goals X1 week 1. Supine-Sit independent MET 2. Sit-Supine independent MET 3. Sit-Stand independent MET 4. Stand-Sit independent with FWW MET 5. Bed-Chair independent with FWW MET 6. Chair-Bed independent with FWW MET 7. Independent gait on level surface with use of FWW for at least 300 feet without report of pain nor dyspnea MET, PROGRESS TO non-level surfaces with AD with HH PT 8. Independent stair negotiation while holding onto B rails for at least 3 steps without report of pain nor dyspnea NOT MET 9. Independent with home exercise program MET 10. Good static and dynamic standing balance/tolerance MET DISCHARGE PLAN: Home with HH PT DISCHARGE RECOMMENDATIONS: [] ? Home with no services [] [X] ? Home with services. Patient will benefit from home health PT services in order to progress mobility level using least restrictive assistive ambulatory device, assess home safety, identify additional equipment needs, and establish a functional maintenance program that will increase ability of patient to remain at home. [] ? Home with outpatient PT [] ? SNF for continued rehabilitation [] [] ? [facility] [] [] ? SNF versus LTC based on ability to participate and progress [] TREATMENT CODE/TIME: NC Thank you for the opportunity to participate in the care of this patient. Yanni Bell PT, DPT, CLT [facility] [place], [place]
== END 2023-06-10 12:53 | disposition home health service (06) ==
LOC: MS 06-09 08:52 → SUR 06-17 11:18 → MS 06-17 11:18
PROVIDERS: Admitting Provider Student in an Organized Health Care Education/Training Program; PCP Physician Assistant; Visit Provider Student in an Organized Health Care Education/Training Program
PROC: 0SR90JZ Replacement of Right Hip Joint with Synthetic Substitute, Open Approach (ICD-10-PCS; CPT 27130; principal; 2023-06-08 07:30)
DX: M16.0 Bilateral primary osteoarthritis of hip (principal); D62 Acute posthemorrhagic anemia; R11.2 Nausea with vomiting, unspecified; M79.7 Fibromyalgia; E78.5 Hyperlipidemia, unspecified; G43.909 Migraine, unspecified, not intractable, without status migrainosus; M48.02 Spinal stenosis, cervical region; E55.9 Vitamin D deficiency, unspecified; M54.50 Low back pain, unspecified; F41.8 Other specified anxiety disorders; I95.9 Hypotension, unspecified
CPT/HCPCS: 27130; 20985; C1776; 36415; 80048; 85027; 86850; 86900; 86901; 86920; 86945; 96365; 96366; 96375; 97116; 97162; 97530; 73501; 85014; 85018; 86644; G0378; J0131; J0690; J1100; J1885; J2001; J2250; J2371; J2405; J2704; J8540; P9016

== ENCOUNTER 2023-06-23 11:57 | Outpatient (CLI) | payer MEDICARE, BC, SELFPAY ==
--- NOTE | 2023-06-23 11:30 | DI.RAD_ITS ---
Exam(s) XR HIP PELVIS ADULT BL EXAM: XR HIP PELVIS ADULT BL CLINICAL HISTORY: 1ST POST OP S/P BILAT RHEA. TECHNIQUE: 2D digital imaging was performed. Three views. COMPARISON: CR XR HIP PELVIS ADULT BL from 02/17/2023 XA XR HIP RT IN OR from 06/08/2023 XA XR HIP LT IN OR from 06/08/2023 FINDINGS: there are bilateral hip prostheses. The alignment appears unchanged compared with intraoperative im ages. No abnormal surrounding bony lucencies are visible. DATA REPOSITORY: RADIATION DOSE DELIVERED:
== END 2023-06-23 11:58 | disposition home or self-care (01) ==
LOC: DIORS 11:57
PROVIDERS: PCP Physician Assistant; Referring Provider Physician Assistant; Visit Provider Student in an Organized Health Care Education/Training Program
DX: Z96.643 Presence of artificial hip joint, bilateral (principal); Z47.1 Aftercare following joint replacement surgery
CPT/HCPCS: 73521

== ENCOUNTER → 2023-07-25 14:20 | Outpatient (BNVA) | payer MEDICARE, BC, SELFPAY | PROVIDERS: PCP Physician Assistant; Referring Provider Physician Assistant | DX: Z47.1 Aftercare following joint replacement surgery (principal); M70.62 Trochanteric bursitis, left hip; M70.61 Trochanteric bursitis, right hip; Z96.643 Presence of artificial hip joint, bilateral ==

== ENCOUNTER 2024-06-25 15:51 | Outpatient (CLI) | payer MEDICARE, BC, SELFPAY ==
--- NOTE | 2024-06-25 13:30 | DI.RAD_ITS ---
Exam(s) XR HIP LT AP LAT ONLY XR HIP RT AP LAT ONLY EXAM: XR HIP RT AP LAT ONLY and XR hip LT Lat only CLINICAL HISTORY: ANNUAL F/U BILAT THAs. TECHNIQUE: 2D digital imaging was performed. Three images were obtained. AP, lateral and oblique vi ews were obtained. COMPARISON: CR XR HIP PELVIS ADULT BL from 06/23/2023 FINDINGS: BONES: There are stable post operative changes of a bilateral total hip replacements present. No fra cture or dislocation. JOINTS: The orthopedic hardware is in good position. No evidence of hardware loosening. SOFT TISSUE: Normal. IMPRESSION: Stable bilateral total hip replacements. DATA REPOSITORY: RADIATION DOSE DELIVERED:
== END 2024-06-25 15:52 | disposition home or self-care (01) ==
LOC: DIORS 15:51
PROVIDERS: PCP Physician Assistant; Referring Provider Physician Assistant; Visit Provider Student in an Organized Health Care Education/Training Program
DX: Z47.1 Aftercare following joint replacement surgery (principal); Z96.643 Presence of artificial hip joint, bilateral
CPT/HCPCS: 99213; 73502

== ENCOUNTER 2025-06-28 01:13 | Outpatient (CLI) | payer MEDICARE, BC, SELFPAY ==
--- NOTE | 2025-06-28 | DI.MAMMO_ITS ---
Exam(s) MAMMO SCREENING EXAM: MAMMO SCREENING CLINICAL HISTORY: SCREENING, Z12.31. TECHNIQUE: Bilateral full field digital CC and MLO mammographic images were obtained with 3D tomosynthesis and utilizing computer aided detection (CAD). COMPARISON: Prior mammograms were reviewed. FINDINGS: Fibroglandular tissue is again noted be dense, this decreasing the sensitivity of the mammogram for finding hidden underlying lesions There are no obvious new spiculated masses nor new malignant appearing microcalcification groups. There is no significant architectural distortion nor skin thickening-retraction. IMPRESSION: Dense bilateral fibroglandular tissue. No obvious radiographic evidence of malignancy. BI-RADS Category 1 - Negative Breast Density - Category C - The breast are heterogeneously dense, which may obscure small masses. Breast density Category C or D implies that the patient has dense breast tissue. Dense breast tissue can make it harder to find cancer on a mammogram. Dense breast tissue is also associated with an increased risk of breast cancer. This information about the result of the mammogram report was provided to the patient to raise their awareness. Use this report when you speak with the patient about their risks for breast cancer, which includes their family history. At that time, you may recommend additional screening tests (Ultrasound or MRI) as these tests may add significant information. A negative radiographic report should not delay biopsy if a dominant or clinically suspicious mass is present. Up to ten percent of cancers are not identified on mammography. A negative report may reinforce clinical impression. Adenosis and dense breasts may obscure an underlying neoplasm. False positive reports average 6 to 10%. Patient will receive a letter notifying them of these results.
== END 2025-06-28 01:33 ==
LOC: DI 01:14
PROVIDERS: PCP Physician Assistant; Visit Provider Physician Assistant
DX: Z12.31 Encounter for screening mammogram for malignant neoplasm of breast (principal); R92.333 Mammographic heterogeneous density, bilateral breasts
CPT/HCPCS: 77063; 77067

== ENCOUNTER → 2025-09-26 06:26 | Outpatient (CLI) | payer MEDICARE, BC, SELFPAY ==
--- NOTE | 2025-09-26 12:00 | DI.US_ITS ---
Exam(s) US SOFT TISSUE HEAD OR NECK EXAM: US SOFT TISSUE HEAD OR NECK CLINICAL HISTORY: PALPABLE MASS NECK, R22.1, FIRMNESS/MASS LT LATERAL NECK. TECHNIQUE: Ultrasound was performed using standard protocol. COMPARISON: No exams were available for comparison FINDINGS: Sonographic assessment utilizing grayscale and color Doppler imaging was performed and targeted to the area of clinical concern. The left side of the neck was scanned. There are normal appearing lymph nodes. No suspicious mass or fluid collection. The largest lymph node measures 7 millimeters. IMPRESSION: Normal appearing lymph nodes correspond to the palpable abnormality in the left side of the neck. DATA REPOSITORY:
== END ==
LOC: DI 06:26
PROVIDERS: PCP Physician Assistant; Visit Provider Physician Assistant
DX: R22.1 Localized swelling, mass and lump, neck (principal)
CPT/HCPCS: 76536

== ENCOUNTER 2025-10-28 09:25 | Outpatient (CLI) | payer MEDICARE, BC, SELFPAY ==
[2025-10-28 09:58] LABS: Abs Immature Grans 0.01 10^3/uL (0.0-0.06); HCT 36.2 % (36.0-46.0); HGB 11.8 g/dL (11.2-15.7); Immature Grans % 0.4 %; MCH 31.6 pg (27.0-33.0); MCHC 32.6 % (32.0-36.0); MCV 97 fL (80-95); MPV 10.2 fL (8.0-11.0); Platelet Count 159 10^3/uL (130-400); RBC 3.74 10^6/uL (3.93-5.22); RDW 13.8 % (11.7-14.6); RDW-SD 49.3 fL; WBC 2.69 10^3/uL (4.4-10.8)
[2025-10-28 10:04] LABS: Glucose Negative (Negative)
[2025-10-28 10:13] LABS: RBC 0-2 HPF (0-2)
[2025-10-28 10:14] LABS: Hemoglobin A1C 5.2 % (<5.7)
[2025-10-28 11:11] LABS: ALT 21 U/L (10-49); AST 25 U/L (<34); Albumin 4.2 g/dL (3.2-5.0); Alkaline Phosphatase 58 U/L (46-116); Anion Gap 7.7 mmol/L (3-11); BUN 18 mg/dL (9-23); Bilirubin, Total 0.7 mg/dL (0.2-1.2); CO2 31.3 mmol/L (20.0-31.0); Calcium 9.1 mg/dL (8.3-10.6); Chloride 105 mmol/L (98-107); Cholesterol 245 mg/dL (<200); Glucose 89 mg/dL (74-106); HDL Cholesterol 83 mg/dL (>or=50); Potassium 3.9 mmol/L (3.5-5.1); Sodium 144 mmol/L (136-145); Total Protein 6.5 g/dL (5.7-8.2)
== END 2025-10-28 09:26 | disposition home or self-care (01) ==
LOC: LBO 09:26
PROVIDERS: PCP Physician Assistant; Visit Provider Physician Assistant
DX: R73.9 Hyperglycemia, unspecified (principal); D72.819 Decreased white blood cell count, unspecified; R30.0 Dysuria; E78.5 Hyperlipidemia, unspecified
CPT/HCPCS: 36415; 80053; 80061; 81003; 81015; 83036; 85025